=== PATIENT | male | born 1950 | race Caucasian/White ===

== ENCOUNTER 2018-08-14 08:45 | Inpatient (IN) | payer MEDICARE, MEDICAID ==
[~2018-08-14] VITALS: Ht 190.5 cm; Wt 113.6 kg
--- NOTE | 2018-08-14 09:09 | NUR ---
PT TO ROOM 13 IN WHEELCHAIR, REPORT TO Kristen BEJARANO RN
--- NOTE | 2018-08-14 09:30 | NUR ---
PT POOR HISTORIAN. PER PT HE HAS BEEEN OFF ALL MEDICATIONS, INCLUDING LASIX AND BLOOD PRESSURE MEDICATIONS. PT RR 26 AT THIS TIME. SA02 92% ON ROOM AIR. IV INITIATED AND LABS COLLECTED. PT AWARE OF PROBABLE PLAN OF CARE AND WAIT TIME. CALL GREENE WITHIN REACH.
--- NOTE | 2018-08-14 10:00 | NUR ---
3+ PITTING EDEMA NOTED TO BILATERAL LOWER EXTREMITIES. PT AWARE OF PENDING RESULTS AND WAIT TIME. CALL GREENE WITHIN REACH.
[2018-08-14 10:30] LABS: HEMATOCRIT 39.1 % (39.0-50.0); HEMOGLOBIN 12.8 g/dl (14.0-18.0); IMMATURE GRANULOCYTES 0.5 % (0.0-5.0); MEAN CELL VOLUME 89.9 fL CALC (80.0-100.0); MEAN CORPUSCULAR HGB 29.4 pG CALC (26.0-32.0); MEAN CORPUSCULAR HGB CONC 32.7 g/L CALC (32.0-36.0); NEUT# 6.85 thou/uL (1.82-7.42); RED BLOOD COUNT 4.35 mill/uL (4.70-6.10); RED CELL DISTRI WIDTH 15.5 % (11.5-15.5)
[2018-08-14 10:43] LABS: ALBUMIN 4.2 g/dL (3.2-5.0); ALKALINE PHOSPHATASE 89 u/l (38-126); ANION GAP 14 (6-22 (CALC)); BILIRUBIN, TOTAL 1.7 mg/dL (0.0-1.4); BUN 22 mg/dL (8-23); BUN/CREATININE RATIO 19 (12-20 (CALC)); CARBON DIOXIDE 26 mmol/l (22-30); CHLORIDE 108 mmol/l (95-108); CREATININE 1.2 mg/dL (0.7-1.3); GFR 60 ML/MIN (>=60 (CALC)); GFR FOR AFR.AMER. > 60 ML/MIN (>=60 (CALC)); SGOT/AST 20 u/l (19-48); SODIUM 144 mmol/l (137-146); TOTAL PROTEIN 8.1 g/dL (6.3-8.2)
--- NOTE | 2018-08-14 10:47 | NUR ---
PT MEDICATED PER ORDERED. NITRO PATCH APPLIED TO LEFT ANTERIOR CHEST. URINAL PROVIDED AND PT AWARE OF NEED TO USE CALL GREENE IF HE NEEDS TO GET UP TO URINATE.
[2018-08-14 10:48] LABS: INTERNATIONAL NORMALIZED RATIO 1.1 RATIO (0.7-1.3); PROTHROMBIN TIME 11.8 SECONDS (9.0-12.5)
--- NOTE | 2018-08-14 11:15 | NUR ---
PT FOUND STANDING UP BY SIDE OF STRETCHER WITH A SOILED GOWN AND URINE ON THE FLOOR AND CALL LIGHT ON STRETCHER. PT GOWN AND LINENS CHANGED AND PT REMINDED OF NEED TO USE CALL GREENE TO URINATE.
--- NOTE | 2018-08-14 11:36 | NUR ---
NOTIFIED OF CONTINUED HIGH BLOOD PRESSURE. BP 163/109. AWAITING NEW ORDERS.
--- NOTE | 2018-08-14 11:53 | NUR ---
DR FOSTER AT BEDSIDE.
--- NOTE | 2018-08-14 12:40 | NUR ---
PT REPORT CALLED TO YULIA BUSTILLOS.
--- NOTE | 2018-08-14 12:45 | NUR ---
CALL PLACED TO DR FOSTER TO DISCUSS CONTINUED HYPERTENSION. VERBAL ORDER RECEIVED AND FAXED TO PHARMACY.
--- NOTE | 2018-08-14 13:08 | NUR ---
UPDATED REPORT TO YULIA BUSTILLOS.
--- NOTE | 2018-08-14 13:30 | NUR ---
PT HAS TOTAL OUTPUT OF 900 MLS OF PALE YELLOW URINE.
--- NOTE | 2018-08-14 13:46 | NUR ---
Admission Note Report Given to: SBAR PRINTED TO FLOOR Transported by: Wheelchair X Stretcher Transported with: X Nurse Transporter X Patent IV O2 Animal Behaviorist
[2018-08-14 13:52] VITALS: BP 131/92
--- NOTE | 2018-08-14 13:52 | NUR ---
PT ARRIVED TO FLOOR VIA STRETCHER ACCOMPANIED BY ER NURSE. PT AMBULATED WITH UNSTEADY GAIT TO SCALE THEN TO BED. ORIENTED PT TO ROOM AND CALL LIGHT. INFORMED PT THAT DUE TO UNSTEADY GAIT PLEASE NOTIFY STAFF FOR ANY ASSISTANCE, VERBALIZED UNDERSTANDING. PT MEDICATED PER MAR AND INITATED IV ANTIBIOTIC INFUSIONS. ADMISSION ASSESSMENT COMPLETED. PT ALERT AND ORIENTED X3, VOICES NO NEEDS OR COMPLAINTS AT THIS TIME. CALL LIGHT IN REACH,CONTINUE TO MONITOR.
--- NOTE | 2018-08-14 17:35 | NUR ---
DISCUSSED WITH PT NOVOLOG SLIDING SCALE AND DOSAGE. PT STATES HE DOES NOT WANT TO TAKE ANY INSULIN ESPECIALLY WHEN HIS BLOOD SUGAR IS LESS THAN 200. CALL LIGHT IN REACH,CONTINUE TO MONITOR.
[2018-08-14 19:00] VITALS: BP 97/62
--- NOTE | 2018-08-14 20:00 | NUR ---
PT. SITTING UP IN BED; ASSESSMENT COMPLETED; O2 INFUSING PER NC PER ORDER; UPDATED ON POC; VERBALIZES UNDERSTANDING. INSTRUCTED PT. TO CALL FOR ALL OOB NEEDS AND NOT TO GET UP WITHOUT CALLING; FALL RISK BAND APPLIED; EDEMA NOTED TO BLE;TEDS PLACED TO BILATERAL LE. URINAL EMPTIED OF 225ML OF CLEAR YELLOW URINE; PT. REPORTS BM THIS EVENING. CALL LIGHT IS IN REACH. WILL CONTINUE TO MONITOR.
[2018-08-14 20:40] VITALS: BP 120/79
--- NOTE | 2018-08-14 20:40 | NUR ---
RECHECKED B/P 120/79; MEDICATED WITH ORDERED BUMEX; ACCUCHECK 180; DECLINED INSULIN. CALL LIGHT AND URINAL IN REACH.
--- NOTE | 2018-08-14 23:16 | NUR ---
PT. SITTING UP IN BED WITH NO DISTRESS NOTED; DENIES NEEDS/PAIN. URINAL EMPTIED OF 250 MLS OF CLEAR YELLOW URINE; ENCOURAGED TO CALL FOR ANY NEEDS. CALL LIGHT IS IN REACH.
[2018-08-15] VITALS: BP 127/68
--- NOTE | 2018-08-15 01:58 | NUR ---
PT. RESTING IN BED IN SEMI FOWLERS POSITION; DENIES NEEDS; ENCOURAGED TO CALL FOR ANY NEEDS. CALL LIGHT IS IN REACH.
[2018-08-15 04:00] VITALS: BP 131/87
--- NOTE | 2018-08-15 05:51 | NUR ---
PT. RESTING IN BED WITH NO DISTRESS NOTED. DENIES NEEDS. URINAL EMPTIED OF 200 MLS OF URINE; FRESH WATER GIVEN; CALL LIGHT IS IN REACH.
[2018-08-15 06:26] LABS: HEMATOCRIT 36.1 % (39.0-50.0); HEMOGLOBIN 11.7 g/dl (14.0-18.0); IMMATURE GRANULOCYTES 0.3 % (0.0-5.0); MEAN CELL VOLUME 90.7 fL CALC (80.0-100.0); MEAN CORPUSCULAR HGB 29.4 pG CALC (26.0-32.0); MEAN CORPUSCULAR HGB CONC 32.4 g/L CALC (32.0-36.0); NEUT# 7.26 thou/uL (1.82-7.42); RED BLOOD COUNT 3.98 mill/uL (4.70-6.10); RED CELL DISTRI WIDTH 15.3 % (11.5-15.5)
[2018-08-15 06:36] LABS: ALBUMIN 3.6 g/dL (3.2-5.0); ALKALINE PHOSPHATASE 78 u/l (38-126); ANION GAP 12 (6-22 (CALC)); BUN 24 mg/dL (8-23); BUN/CREATININE RATIO 18 (12-20 (CALC)); CARBON DIOXIDE 28 mmol/l (22-30); CHLORIDE 108 mmol/l (95-108); CREATININE 1.3 mg/dL (0.7-1.3); GFR 55 ML/MIN (>=60 (CALC)); GFR FOR AFR.AMER. > 60 ML/MIN (>=60 (CALC)); MAGNESIUM 1.8 mg/dL (1.6-2.3); POTASSIUM 3.6 mmol/l (3.5-5.1); SGOT/AST 13 u/l (19-48); SODIUM 144 mmol/l (137-146); TOTAL PROTEIN 6.8 g/dL (6.3-8.2)
[2018-08-15 07:32] VITALS: BP 137/90
--- NOTE | 2018-08-15 07:32 | NUR ---
PT RESTING IN BED, NO SIGNS OF DISTRESS NOTED, RESP EVEN AND UNLABORED. DISCUSSED POC, PT IN AGREEMENT. ASSESSMENT COMPLETED. PT VOICES NO NEEDS OR COMPLAINTS AT THIS TIME. CALL LIGHT IN REACH,CONTINUE TO MONITOR.
[2018-08-15 11:58] VITALS: BP 127/82
--- NOTE | 2018-08-15 14:22 | NUR ---
SPOKE WITH BROTHER REGAN FROM [place], HE OFFERED INFORMATION REGARDING PT'S STAY AT [facility] DURING MARCH THRU JUN. BROTHER STATES PT HAD FALLEN AND WAS PLACED IN THE FACILITY FOR PHYSICAL THERAPY, ALSO STATES PT HAD A MIRANDA CATHETER DUE TO URINARY RETENTION. ONCE DISCHARGED FROM FACILITY BOTH OF PT'S BROTHERS DECIDED IT WOULD BE BEST FOR PT TO MOVE CLOSER TO THE YOUNGEST BROTHER THAT RESIDES IN [place], [place]. MOTHER AND HAD A DUPLEX THAT PT HAS MOVED INTO BACK IN JUNE. FAMILY EXPRESSED CONCERN FOR PT REGARDING HIS ABILITY TO RESIDE AT HOME ALONE. NOTIFIED CASE MANAGEMENT AND WILL ALSO PASS ON INFORMATION TO FOR PHYSICAL THERAPY CONSULT.
[2018-08-15 15:27] VITALS: BP 124/85
--- NOTE | 2018-08-15 16:51 | NUR ---
PT SITTING UP IN RECLINER PER MD ORDERS. AUTHORIZATION FOR MEDICAL RELEASE SIGNED FOR [facility] AND [facility]. CONTINUE TO MONITOR.
[2018-08-15 19:00] VITALS: BP 112/67
--- NOTE | 2018-08-15 19:18 | NUR ---
PT. SITTING UP IN THE CHAIR; NO DISTRESS NOTED; O2 INFSUING PER NC PER ORDER. ASSESSMENT COMPLETED; DENIES NEEDS/PAIN; INSTRUCTED TO CALL FOR ALL OOB NEEDS; ENCOURAGED TO CALL FOR ANY NEEDS. CALL LIGHT IS IN REACH.
--- NOTE | 2018-08-15 21:00 | NUR ---
SCHED MEDICATIONS GIVEN; PT. DECLINES INSULIN FOR BS OF 181; PO FLUIDS OFFERED. RE-INSTRUCTED PT. TO CALL FOR ALL OOB NEEDS AND NOT TO GET UP WITH CALLING FOR STAFF ASST.; VERBALIZES UNDERSTANDING. CALL LIGHT AND URINAL AT BEDSIDE AND INSTRUCTED TO VOID ONLY IN URINAL FOR ACCURATE OUTPUT. WILL CONTINUE TO MONITOR.
[2018-08-16] VITALS: BP 123/82
--- NOTE | 2018-08-16 00:18 | NUR ---
PT. RESTING IN BED WITH NO DISTRESS NOTED; DENIES NEEDS/PAIN. VOICES NO CONCERNS; URINAL EMPTIED. INSTRUCTED TO CALL FOR ANY NEEDS; CALL LIGHT IS IN REACH; WILL CONTINUE TO MONITOR.
--- NOTE | 2018-08-16 02:13 | NUR ---
PT. RESTING IN BED IN SEMI-FOWLERS POSITION WITH EYES CLOSED; NO DISTRESS NOTED; RESP EVEN AND UNLABORED. CALL LIGHT AND URINAL WITHIN REACH. WILL CONTINUE TO MONITOR.
[2018-08-16 04:30] VITALS: BP 134/89
--- NOTE | 2018-08-16 05:55 | NUR ---
PT. RESTING IN BED WITH EYES CLOSED; NO DISTRESS NOTED; RESP EVEN AND UNLABORED. CALL LIGHT IS IN REACH.
[2018-08-16 06:02] LABS: HEMATOCRIT 36.7 % (39.0-50.0); HEMOGLOBIN 11.6 g/dl (14.0-18.0); MEAN CELL VOLUME 91.8 fL CALC (80.0-100.0); MEAN CORPUSCULAR HGB CONC 31.6 g/L CALC (32.0-36.0); RED CELL DISTRI WIDTH 15.5 % (11.5-15.5)
[2018-08-16 06:07] LABS: ANION GAP 12 (6-22 (CALC)); BUN 24 mg/dL (8-23); BUN/CREATININE RATIO 17 (12-20 (CALC)); CARBON DIOXIDE 30 mmol/l (22-30); CHLORIDE 105 mmol/l (95-108); CREATININE 1.4 mg/dL (0.7-1.3); GFR 50 ML/MIN (>=60 (CALC)); GFR FOR AFR.AMER. > 60 ML/MIN (>=60 (CALC)); POTASSIUM 3.8 mmol/l (3.5-5.1); SODIUM 143 mmol/l (137-146)
--- NOTE | 2018-08-16 07:09 | NUR ---
PT RESTING IN BED, DISCUSSED POC AND TO SIT UP IN CHAIR WITH MEALS, PT IN AGREEMENT. ASSESSMENT COMPLETED AT THIS TIME. EDEMA BLE, TEDS IN PLACE. 02 2L NC, RESP EVEN AND UNLABORED. CALL LIGHT IN REACH,CONTINUE TO MONITOR.
--- NOTE | 2018-08-16 07:40 | NUR ---
PT ASSISTED TO CHAIR AT BEDSIDE FOR BREAKFAST. VSS, MEDICATED PER NOV. URINAL AND CALL LIGHT IN REACH, CONTINUE TO MONITOR.
[2018-08-16 07:49] VITALS: BP 127/85
[2018-08-16 11:30] VITALS: BP 119/54
--- NOTE | 2018-08-16 13:05 | NUR ---
NOTIFIED OF 7 BEAT RUN OF [facility], NO NEW ORDERS GIVEN.
[2018-08-16 15:05] VITALS: BP 112/59
[2018-08-16 19:00] VITALS: BP 128/82
--- NOTE | 2018-08-16 19:30 | NUR ---
PATIENT SITTING IN RECLINER AT THIS TIME WITH O2 VIA NASAL CANNULA IN PLACE. PATIENT IS AWAKE ALERT AND ORIENTEDX3. VOIDING QS YELLOW URINE IN URINAL. TELE MONITORING DEVICE IN PLACE. SALINE LOCK TO RIGHT AC INTACT AND APPEARS HEALTHY AT THIS TIME. SAFETY PRECAUTIONS REINFORCED.CALL LIGHT IN REACH. WILL CONT TO MONITOR.
--- NOTE | 2018-08-16 21:00 | NUR ---
PATIENT SITTING UP ON THE SIDE OF THE BED WITH O2 VIA NASAL CANNULA IN PLACE. COREG HELD-HR-52, BP 128/82. PATIENT WITH NO COMPLAINTS AT THIS TIME. SAFETY PRECAUTIONS REINFORCED. CALL LIGHT IN REACH. WILL CONT TO MONITOR.
--- NOTE | 2018-08-17 | NUR ---
PATIENT RESTING IN BED AT THIS TIME WITH O2 OFF-REAPPLIED WITH ASSISTANCE. PATIENT WITH BP-147/99, HR-67. PATIENT MEDICATED WITH COREG WAS ORDERED AT 2100. VOIDED 200CC OF YELLOW URINE IN URINAL. SAFETY PRECAUTIONS REINFORCED. CALL LIGHT IN REACH. WILL CONT TO MONITOR.
[2018-08-17 00:01] VITALS: BP 147/99
[2018-08-17 04:30] VITALS: BP 102/69
--- NOTE | 2018-08-17 04:47 | NUR ---
PATIENT RESTING IN BED AND FOUND WITH O2 OFF-O2 SAT WAS 84 AND O2 REAPPLIED AT 2LPM. O2 RECHECKED WITH O2 AT 93%. TELE MONITOR IN PLACE. VOIDING QS IN URINAL YELLOW URINE. CALL LIGHT IN REACH. WILL CONT TO MONITOR.
[2018-08-17 05:54] LABS: HEMATOCRIT 34.7 % (39.0-50.0); HEMOGLOBIN 11.2 g/dl (14.0-18.0); MEAN CELL VOLUME 90.4 fL CALC (80.0-100.0); MEAN CORPUSCULAR HGB 29.2 pG CALC (26.0-32.0); MEAN CORPUSCULAR HGB CONC 32.3 g/L CALC (32.0-36.0); RED BLOOD COUNT 3.84 mill/uL (4.70-6.10); RED CELL DISTRI WIDTH 15.4 % (11.5-15.5)
[2018-08-17 06:21] LABS: ANION GAP 14 (6-22 (CALC)); BUN 25 mg/dL (8-23); BUN/CREATININE RATIO 19 (12-20 (CALC)); CARBON DIOXIDE 27 mmol/l (22-30); CHLORIDE 105 mmol/l (95-108); CREATININE 1.3 mg/dL (0.7-1.3); GFR 55 ML/MIN (>=60 (CALC)); GFR FOR AFR.AMER. > 60 ML/MIN (>=60 (CALC)); MAGNESIUM 1.8 mg/dL (1.6-2.3); POTASSIUM 3.7 mmol/l (3.5-5.1); SODIUM 142 mmol/l (137-146)
--- NOTE | 2018-08-17 07:00 | NUR ---
REPORT RECEIVED FROM NIKI JUNIOR;PT OOB RESTING IN RECLINER;INTRODUCED SELF TO PT AND POC DISCUSSED;PT DENIES ANY CURRENT PAIN OR NEEDS;REPSIRATIONS APPEAR EVEN AND UNLABORED ON 02 @ 2L VIA NC;TELE MONITORING IN PLACE;PT ENCOURAGED TO CALL FOR ASSISTANCE IF NEEDED;FALL PRECAUTIONS IN PLACE WITH CALL LIGHT IN REACH;WILL CONTINUE TO MONITOR
--- NOTE | 2018-08-17 08:30 | NUR ---
PT OOB RESTING IN RECLINER;ALERT AND ORIENTED X3;VS OBTAINED AND ASSESSMENT COMPLETED;PT DENIES ANY CURRENT PAIN OR NEEDS,PAIN SCALE AND REPORTING EDUCATED;RESPIRATIONS EVEN AND UNLABORED ON O2 @ 2L VIA NC;ABDOMEN SOFT ON PALPATION AND ACTIVE IN ALL 4 QUADRANTS;WEAK PEDAL PULSES;SKIN INTACT;#22G TO RAC FLUSHED AND PATENT,SITE APPEARS HEALTHY;TELE MONITORING IN PLACE;ACCUCHECK 146, NO COVERAGED NEEDED THIS MORNING;PT DENIES ANY CURRENT NEEDS AND IS INSTRUCTED TO CALL FOR ASSISTANCE IF NEEDED;FALL PRECAUTIONS IN PLACE;CALL LIGHT IN REACH;WILL CONTINUE TO MONITOR
[2018-08-17 08:33] VITALS: BP 121/85
[2018-08-17 11:30] VITALS: BP 116/79
--- NOTE | 2018-08-17 11:40 | NUR ---
PT OOB RESTING IN RECLINER;RESPIRATIONS EVEN AND UNLABORED ON 02 @ 2L VIA NC;PT DENIES ANY CURRENT PAIN OR NEEDS;ACCUCHECK 163, PT REFUSES NOVOLOG ORDER;PT EDUCATED ON INSULIN AND BLOOD GLUCOSE LEVELS;TELE MONITORING IN PLACE;ASSESSMENT REMAINS UNCHANGED AT THIS TIME;ENCOURAGED TO CALL FOR ASSISTANCE IF NEEDED;FALL PRECAUTIONS IN PLACE;WILL CONTINUE TO MONITOR
--- NOTE | 2018-08-17 14:30 | NUR ---
PHYSICAL THERAPY AT BEDSIDE.
--- NOTE | 2018-08-17 14:40 | NUR ---
AT BEDSIDE DISCUSSING POC.
--- NOTE | 2018-08-17 15:30 | NUR ---
PT OOB RESTING IN RECLINER;RESPIRATIONS EVEN AND UNLABORED ON 02 @ 2L VIA NC;PT DENIES ANY CURRENT PAIN OR NEEDS;IV SITE REMAINS PATENT TO RAC;TELE MONITORING IN PLACE;ASSESSMENT UNCHANGED AT THIS TIME;ENCOURAGED TO CALL FOR ASSISTANCE IF NEEDED;FALL PRECAUTIONS IN PLACE WITH CALL LIGHT IN REACH;WILL CONTINUE TO MONITOR
[2018-08-17 15:49] VITALS: BP 108/71
--- NOTE | 2018-08-17 19:27 | NUR ---
PATIENT SITTING UP IN THE RECLINER WITH O2 VIA NASAL CANNULA IN PLACE AND O2 VIA NASAL CANNULA IN PLACE. PATIENT TALKING ON PHONE. TELE MONITOR IN PLACE. IV SITE TO RIGHT AC INTACT AND APPEARS HEALTHY. SAFETY PRECAUTIONS REINFORCED.CALL LIGHT IN REACH. WILL CONT TO MONITOR.
[2018-08-17 20:17] VITALS: BP 122/84
--- NOTE | 2018-08-17 21:02 | NUR ---
PATIENT RESTING IN BED AT THIS TIME AND ECHO BEING DONE AT BEDSIDE. BS-164 AND PATIENT REFUSES TO TAKE NOVALOG FOR ANY RESULT UNDER 200. CALL LIGHT IN REACH. WILL CONT TO MONITOR.
[2018-08-18] VITALS: BP 120/77
--- NOTE | 2018-08-18 00:50 | NUR ---
PATIENT SITTING UP ON THE SIDE OF THE BED-O2 OFF AND REAPPLIED. PATIENT EDUCATED ON NEED TO WEAR THE O2 BECAUSE HE DOES DESAT WHEN O2 IS OFF AND WHEN HE IS SLEEPING. VOIDING QS CLEAR YELLOW URINE IN URINAL. SAFETY PRECAUTIONS REINFORCED. CALL LIGHT IN REACH. WILL CONT TO MONITOR.
--- NOTE | 2018-08-18 04:24 | NUR ---
PATIENT FOUND WITH TELE OFF. O2 OFF AND LINENS ON BED OFF. PATIENT ASSISTED OOB AND LINES CHANGED. O2 REAPPLIED AND TELE MONITOR REAPPLIED. SAFETY PRECAUTIONS REINFORCED.CALL LIGHT IN REACH. WILL CONT TO MONITOR.
[2018-08-18 04:26] VITALS: BP 133/80
[2018-08-18 05:31] LABS: HEMATOCRIT 35.6 % (39.0-50.0); HEMOGLOBIN 11.6 g/dl (14.0-18.0); IMMATURE GRANULOCYTES 0.4 % (0.0-5.0); MEAN CELL VOLUME 89.9 fL CALC (80.0-100.0); MEAN CORPUSCULAR HGB 29.3 pG CALC (26.0-32.0); MEAN CORPUSCULAR HGB CONC 32.6 g/L CALC (32.0-36.0); NEUT# 5.49 thou/uL (1.82-7.42); RED BLOOD COUNT 3.96 mill/uL (4.70-6.10); RED CELL DISTRI WIDTH 15.1 % (11.5-15.5)
[2018-08-18 05:37] LABS: ALBUMIN 3.6 g/dL (3.2-5.0); BILIRUBIN, TOTAL 0.6 mg/dL (0.0-1.4); CREATININE 1.6 mg/dL (0.7-1.3); MAGNESIUM 1.9 mg/dL (1.6-2.3); POTASSIUM 3.8 mmol/l (3.5-5.1); TOTAL PROTEIN 6.7 g/dL (6.3-8.2)
--- NOTE | 2018-08-18 07:05 | NUR ---
REPORT RECEIVED FROM NIKI JUNIOR;PT RESTING AT BEDSIDE;INTRODUCED SELF TO PT AND POC DISCUSSED;RESPIRATIONS EVEN AND UNLABORED ON RA;TELE MONITORING IN PLACE;PT DENIES ANY CURRENT NEEDS AND IS INSTRUCTED TO CALL FOR ASSISTANCE IF NEEDED;FALL PRECAUTIONS IN PLACE WITH BED IN THE LOWEST POSITION AND CALL LIGHT IN REACH;WILL CONTINUE TO MONITOR
--- NOTE | 2018-08-18 07:45 | NUR ---
PT RESTING AT BEDSIDE;VS OBTAINED AND ASSESSMENT COMPLETED;PT DENIES ANY CURRENT PAIN OR NEEDS,PAIN SCALE AND REPORTING EDUCATED;RESPIRATIONS REMAIN EVEN AND UNLABORED ON RA,CLEAR LUNG SOUNDS NOTED;ABDOMEN SOFT ON PALPATION AND ACTIVE IN ALL 4 QUADRANTS;WEAK PEDAL PULSES NOTED;SKIN INTACT;#22G TO RAC FLUSHED AND PATENT,SITE APPEARS HEALTHY;ACCUCHECK 131,NO COVERAGED NEEDED AT THIS TIME;TELE MONITORING IN PLACE;PT ENCOURAGED TO CALL FOR ASSISTANCE IF NEEDED;CALL LIGHT IN REACH;WILL CONTINUE TO MONITOR
[2018-08-18 07:46] VITALS: BP 131/84
[2018-08-18 10:47] VITALS: BP 133/78
--- NOTE | 2018-08-18 10:54 | NUR ---
PT DECLINED PHYSICAL THERAPY. STATING THAT HE WAS WAITING ON HIS MD SO HE COULD BE DISCHARGED TODAY. WILLING TO WORK WITH [facility]
--- NOTE | 2018-08-18 11:12 | NUR ---
AT BEDSIDE DISCUSSING POC INCLUDING DICHARGE PLAN.
--- NOTE | 2018-08-18 11:15 | NUR ---
PT RESTING AT BEDSIDE;RESPIRATIONS EVEN AND UNLABORED ON RA;PT DENIES ANY CURRENT PAIN OR NEEDS;ACCUCHECK 170,PT REFUSES SCHEDULED NOVOLOG.EDUCATED ON IMPORTANCE OF BLOOD GLUCOSE MAINTENANCE;TELE MONITORING IN PLACE;PT DENIES ANY CURRENT NEEDS AND IS INSTRUCTED TO CALL FOR ASSISTANCE IF NEEDED;CALL LIGHT IN REACH;WILL CONTINUE TO MONITOR
--- NOTE | 2018-08-18 11:45 | NUR ---
NOTIFIED OF REPEAT ECHO ORDER PLACED BY AT 0650.PER REPEAT ECHO IS NOT NEEDED. WILL D/C ORDER.
[2018-08-18] MEDS ORDERED: DOXYCYCL HYC100 MG PO (12:24)
[2018-08-18] MEDS ORDERED: BUMETANIDE0.25 MG/ML PO (12:28)
[2018-08-18] MEDS ORDERED: LOSARTAN POT50 MG PO (12:28)
[2018-08-18] MEDS ORDERED: PANTOPRAZOLE SO40 M1 PO (12:28)
[2018-08-18] MEDS ORDERED: IPRATROPIU0.5 MG/3 M IN (12:28)
[2018-08-18] MEDS ORDERED: CARVEDILOL25 MG PO (12:28)
[2018-08-18] MEDS ORDERED: LEVEMIR100 UNIT/M SC (12:28)
--- NOTE | 2018-08-18 13:35 | NUR ---
ALL DISCHARGE INSTRUCTIONS PROVIDED AT THIS TIME;PT ENCOURAGED TO FOLLOW UP WITH AND IKE;PRESCRIPTIONS DISCUSSED INDEPTH;IV SITE REMOVED WITH CATHETER INTACT;PT DENIES ANY CURRENT NEEDS;PT AWAITING [facility] FOR DICHARGE HOME.
--- NOTE | 2018-08-18 14:14 | NUR ---
Discharge instructions given. Patient verbalizes understanding of same. Discharged in stable condition via Wheelchair to Home with *Other. All belongings sent with pt. Pt transported to er via wc accompanied volunteer in stable condition.Pt awaiting the [facility] [facility] which is to arrive at 1430.
== END 2018-08-18 14:12 | disposition home health service (06) | DRG 292 ==
LOC: ED 08:45 → ED-I 11:26 → ED 11:43 → MS2 11:44
PROVIDERS: Emergency Medicine; Internal Medicine; ADMIT Internal Medicine Nephrology; ATTEND Internal Medicine Nephrology
DX: I11.0 Hypertensive heart disease with heart failure (principal); J44.1 Chronic obstructive pulmonary disease with (acute) exacerbation; J44.0 Chronic obstructive pulmonary disease with (acute) lower respiratory infection; I47.2 Ventricular tachycardia; J20.9 Acute bronchitis, unspecified; I16.0 Hypertensive urgency; I50.9 Heart failure, unspecified; E11.9 Type 2 diabetes mellitus without complications; I25.10 Atherosclerotic heart disease of native coronary artery without angina pectoris; D63.8 Anemia in other chronic diseases classified elsewhere; T50.906A Underdosing of unspecified drugs, medicaments and biological substances, initial encounter; Z91.128 Patient's intentional underdosing of medication regimen for other reason; Z86.73 Personal history of transient ischemic attack (TIA), and cerebral infarction without residual deficits
CPT/HCPCS: J1650

== ENCOUNTER 2019-10-30 09:57 | Observation (INO) | payer MEDICARE, MEDICAID ==
[~2019-10-30] VITALS: Ht 190.5 cm; Wt 113.9 kg
[~2019-10-30 09:57] MED LIST: BUMETANIDE0.25 MG/ML PO; CARVEDILOL25 MG PO; DOXYCYCL HYC100 MG PO; IPRATROPIU0.5 MG/3 M IN; LEVEMIR100 UNIT/M SC; LOSARTAN POT50 MG PO; PANTOPRAZOLE SO40 M1 PO
[2019-10-30 10:45] LABS: HEMATOCRIT 39.9 % (39.0-50.0); HEMOGLOBIN 12.3 g/dl (14.0-18.0); IMMATURE GRANULOCYTES 0.5 % (0.0-5.0); MEAN CELL VOLUME 85.3 fL CALC (80.0-100.0); MEAN CORPUSCULAR HGB 26.3 pG CALC (26.0-32.0); MEAN CORPUSCULAR HGB CONC 30.8 g/L CALC (32.0-36.0); NEUT# 10.02 thou/uL (1.82-7.42); RED BLOOD COUNT 4.68 mill/uL (4.70-6.10); RED CELL DISTRI WIDTH 16.6 % (11.5-15.5)
[2019-10-30 11:16] LABS: POTASSIUM 4.7 mmol/l (3.5-5.1)
[2019-10-30 12:57] LABS: URINE BILIRUBIN - DIPSTICK NEGATIVE (NEGATIVE); URINE BLOOD DIPSTICK MODERATE (NEGATIVE); URINE COLOR YELLOW; URINE GLUCOSE - DIPSTICK NEGATIVE (NEGATIVE); URINE KETONE NEGATIVE (NEGATIVE); URINE NITRITE - DIPSTICK NEGATIVE (Negative); URINE PROTEIN - DIPSTICK 30 mg/dL (NEG-TRACE); URINE SPECIFIC GRAVITY 1.025; URINE UROBILINOGEN - DIPSTICK 0.2 E.U./dL (0.2)
[2019-10-30 13:02] LABS: URINE LEUK ESTERASE TRACE (NEGATIVE)
[2019-10-30 13:03] LABS: URINE MUCUS MODERATE hpf (NONE-FEW)
[2019-10-30 15:02] VITALS: BP 129/80
[2019-10-30 16:46] VITALS: BP 133/83
[2019-10-30] MEDS ORDERED: JANUVIA25 MG PO (17:55)
[2019-10-30] MEDS ORDERED: METFORMIN500 M1 PO (17:55)
[2019-10-30] MEDS ORDERED: COZAAR100 MG PO (17:55)
[2019-10-30] MEDS ORDERED: ASPIRIN 81 LOW81 MG PO (17:56)
[2019-10-30] MEDS ORDERED: LEVOTHYROXIN50 MC1 PO (17:56)
[2019-10-30] MEDS ORDERED: NOVOLO1 SC (17:56)
[2019-10-30 19:05] VITALS: BP 158/97
[2019-10-30 23:58] VITALS: BP 134/81
[2019-10-31 03:52] VITALS: BP 158/76
[2019-10-31 08:06] VITALS: BP 144/88
[2019-10-31 12:00] VITALS: BP 111/72
[2019-10-31 13:05] LABS: HEMATOCRIT 38.8 % (39.0-50.0); HEMOGLOBIN 12.1 g/dl (14.0-18.0); MEAN CORPUSCULAR HGB 26.2 pG CALC (26.0-32.0); MEAN CORPUSCULAR HGB CONC 31.2 g/L CALC (32.0-36.0); RED BLOOD COUNT 4.62 mill/uL (4.70-6.10)
[2019-10-31 13:27] LABS: MAGNESIUM 2.2 mg/dL (1.6-2.3)
[2019-10-31 14:24] LABS: CREATININE 1.7 mg/dL (0.7-1.3); POTASSIUM 4.5 mmol/l (3.5-5.1)
[2019-10-31 15:38] VITALS: BP 100/63
[2019-10-31 19:00] VITALS: BP 126/79
[2019-11-01 00:17] VITALS: BP 130/70
[2019-11-01 04:36] VITALS: BP 156/95
[2019-11-01 05:06] LABS: ANION GAP 9 (6-22 (CALC)); BUN 29 mg/dL (8-23); BUN/CREATININE RATIO 21 (12-20 (CALC)); CARBON DIOXIDE 25 mmol/l (22-30); CHLORIDE 109 mmol/l (95-108); CREATININE 1.4 mg/dL (0.7-1.3); GFR 50 ML/MIN (>=60 (CALC)); GFR FOR AFR.AMER. > 60 ML/MIN (>=60 (CALC)); POTASSIUM 4.1 mmol/l (3.5-5.1); SODIUM 139 mmol/l (137-146)
[2019-11-01 09:28] VITALS: BP 113/73
[2019-11-01 10:45] VITALS: BP 120/75
== END 2019-11-01 15:26 | disposition home health service (06) ==
LOC: ED 09:57 → ED-I 13:03 → ED 13:15 → ED-I 13:16 → MS2 13:16
PROVIDERS: Family Medicine; Nurse Practitioner Family; ADMIT Internal Medicine; ATTEND Internal Medicine
PROC: 0HQ0XZZ Repair Scalp Skin, External Approach (ICD-10-PCS; principal; 2019-10-30)
DX: R55 Syncope and collapse (principal); S01.01XA Laceration without foreign body of scalp, initial encounter; N17.9 Acute kidney failure, unspecified; E86.0 Dehydration; E11.9 Type 2 diabetes mellitus without complications; I11.0 Hypertensive heart disease with heart failure; I50.9 Heart failure, unspecified; E78.5 Hyperlipidemia, unspecified; M25.512 Pain in left shoulder; E03.9 Hypothyroidism, unspecified; I25.10 Atherosclerotic heart disease of native coronary artery without angina pectoris; W18.30XA Fall on same level, unspecified, initial encounter; Z86.73 Personal history of transient ischemic attack (TIA), and cerebral infarction without residual deficits; Z95.1 Presence of aortocoronary bypass graft; Z79.4 Long term (current) use of insulin
CPT/HCPCS: G0378

== ENCOUNTER 2019-11-05 10:15 | Inpatient (IN) | payer MEDICARE, MEDICAID ==
[~2019-11-05] VITALS: Ht 190.5 cm; Wt 116.6 kg
[~2019-11-05 10:15] MED LIST changes: +ASPIRIN 81 LOW81 MG PO; +COZAAR100 MG PO; +JANUVIA25 MG PO; +LEVOTHYROXIN50 MC1 PO; +METFORMIN500 M1 PO; +NOVOLO1 SC
[2019-11-05 10:58] LABS: HEMATOCRIT 39.4 % (39.0-50.0); HEMOGLOBIN 12.1 g/dl (14.0-18.0); IMMATURE GRANULOCYTES 0.5 % (0.0-5.0); MEAN CELL VOLUME 85.1 fL CALC (80.0-100.0); MEAN CORPUSCULAR HGB 26.1 pG CALC (26.0-32.0); MEAN CORPUSCULAR HGB CONC 30.7 g/L CALC (32.0-36.0); NEUT# 7.39 thou/uL (1.82-7.42); RED BLOOD COUNT 4.63 mill/uL (4.70-6.10); RED CELL DISTRI WIDTH 17.1 % (11.5-15.5)
[2019-11-05 11:11] LABS: ALBUMIN 3.9 g/dL (3.2-5.0); BILIRUBIN, TOTAL 0.9 mg/dL (0.0-1.4); CREATININE 1.7 mg/dL (0.7-1.3); POTASSIUM 4.8 mmol/l (3.5-5.1); TOTAL PROTEIN 7.6 g/dL (6.3-8.2)
[2019-11-05 14:45] VITALS: BP 162/89
[2019-11-05 15:59] VITALS: BP 162/88
[2019-11-05] MEDS ORDERED: POTASSIUM CHLO10 MEQ PO (16:41)
[2019-11-05] MEDS ORDERED: AMIODARONE200 MG PO (16:42)
[2019-11-05] MEDS ORDERED: ALDACTONE25 MG PO (16:42)
[2019-11-05] MEDS ORDERED: ZOLOFT50 MG PO (16:42)
[2019-11-05] MEDS ORDERED: LASIX 40 MG TAB40 MG PO (16:43)
[2019-11-05] MEDS ORDERED: FAMOTIDINE40 M1 PO (16:44)
[2019-11-05] MEDS ORDERED: ASPIRIN 81 LOW81 MG PO (16:44)
[2019-11-05] MEDS ORDERED: GLUCOPHAGE1000 MG PO (16:47)
[2019-11-05] MEDS ORDERED: JANUVIA100 MG PO (16:48)
[2019-11-05] MEDS ORDERED: BUMETANIDE1 MG PO (16:49)
[2019-11-05] MEDS ORDERED: ISOSORBIDE MONO30 MG PO (16:50)
[2019-11-05] MEDS ORDERED: COREG25 MG PO (16:51)
[2019-11-05] MEDS ORDERED: LEVOTHYROXIN50 MCG PO (16:52)
[2019-11-05] MEDS ORDERED: COZAAR50 MG PO (16:53)
[2019-11-05 18:37] VITALS: BP 138/78
[2019-11-05 23:34] VITALS: BP 129/71
[2019-11-06 03:30] LABS: URINE BILIRUBIN - DIPSTICK NEGATIVE (NEGATIVE); URINE BLOOD DIPSTICK TRACE-INTACT (NEGATIVE); URINE COLOR YELLOW; URINE GLUCOSE - DIPSTICK NEGATIVE (NEGATIVE); URINE KETONE NEGATIVE (NEGATIVE); URINE NITRITE - DIPSTICK NEGATIVE (Negative); URINE PH 5.5 (4.5-8.0); URINE PROTEIN - DIPSTICK TRACE mg/dL (NEG-TRACE); URINE SPECIFIC GRAVITY >=1.030; URINE UROBILINOGEN - DIPSTICK 0.2 E.U./dL (0.2)
[2019-11-06 03:31] LABS: URINE LEUK ESTERASE SMALL (NEGATIVE)
[2019-11-06 03:38] VITALS: BP 154/90
[2019-11-06 03:38] LABS: URINE YEAST FEW hpf
[2019-11-06 07:15] VITALS: BP 121/74
[2019-11-06 10:45] VITALS: BP 97/61
[2019-11-06 16:00] VITALS: BP 135/80
[2019-11-06 18:14] VITALS: BP 134/73
[2019-11-07 00:05] VITALS: BP 171/101
[2019-11-07 03:50] VITALS: BP 130/77
[2019-11-07 04:49] LABS: HEMATOCRIT 38.8 % (39.0-50.0); HEMOGLOBIN 11.8 g/dl (14.0-18.0); MEAN CELL VOLUME 85.3 fL CALC (80.0-100.0); MEAN CORPUSCULAR HGB 25.9 pG CALC (26.0-32.0); MEAN CORPUSCULAR HGB CONC 30.4 g/L CALC (32.0-36.0); RED BLOOD COUNT 4.55 mill/uL (4.70-6.10); RED CELL DISTRI WIDTH 17.1 % (11.5-15.5)
[2019-11-07 05:13] LABS: ALBUMIN 3.3 g/dL (3.2-5.0); ALKALINE PHOSPHATASE 88 u/l (38-126); ANION GAP 9 (6-22 (CALC)); BUN 28 mg/dL (8-23); BUN/CREATININE RATIO 21 (12-20 (CALC)); CARBON DIOXIDE 24 mmol/l (22-30); CHLORIDE 109 mmol/l (95-108); CREATININE 1.4 mg/dL (0.7-1.3); GFR 50 ML/MIN (>=60 (CALC)); GFR FOR AFR.AMER. > 60 ML/MIN (>=60 (CALC)); SGOT/AST 19 u/l (19-48); SODIUM 139 mmol/l (137-146); TOTAL PROTEIN 6.6 g/dL (6.3-8.2)
[2019-11-07 05:15] LABS: BILIRUBIN, TOTAL 0.5 mg/dL (0.0-1.4)
[2019-11-07 08:03] VITALS: BP 131/81
[2019-11-07 11:29] VITALS: BP 160/87
[2019-11-07 15:25] VITALS: BP 151/86
[2019-11-07 18:50] VITALS: BP 133/79
[2019-11-08 00:15] VITALS: BP 163/93
[2019-11-08 04:20] VITALS: BP 167/93
[2019-11-08 08:00] VITALS: BP 151/90
[2019-11-08 11:13] VITALS: BP 127/74
[2019-11-08 14:50] VITALS: BP 121/71
[2019-11-08 19:03] VITALS: BP 140/76
[2019-11-09 00:13] VITALS: BP 143/83
[2019-11-09 04:30] VITALS: BP 158/87
[2019-11-09 05:22] LABS: HEMATOCRIT 37.2 % (39.0-50.0); HEMOGLOBIN 11.6 g/dl (14.0-18.0); MEAN CELL VOLUME 84.4 fL CALC (80.0-100.0); MEAN CORPUSCULAR HGB 26.3 pG CALC (26.0-32.0); MEAN CORPUSCULAR HGB CONC 31.2 g/L CALC (32.0-36.0); RED BLOOD COUNT 4.41 mill/uL (4.70-6.10); RED CELL DISTRI WIDTH 16.8 % (11.5-15.5)
[2019-11-09 05:56] LABS: ANION GAP 11 (6-22 (CALC)); BUN 22 mg/dL (8-23); BUN/CREATININE RATIO 17 (12-20 (CALC)); CARBON DIOXIDE 23 mmol/l (22-30); CHLORIDE 109 mmol/l (95-108); CREATININE 1.2 mg/dL (0.7-1.3); GFR 60 ML/MIN (>=60 (CALC)); GFR FOR AFR.AMER. > 60 ML/MIN (>=60 (CALC)); POTASSIUM 4.1 mmol/l (3.5-5.1); SODIUM 139 mmol/l (137-146)
[2019-11-09 08:00] VITALS: BP 155/88
[2019-11-09 10:35] VITALS: BP 103/65
[2019-11-09 16:15] VITALS: BP 122/73
[2019-11-09 19:51] VITALS: BP 149/83
[2019-11-10 00:10] VITALS: BP 136/83
[2019-11-10 05:01] VITALS: BP 154/9
[2019-11-10 07:36] VITALS: BP 158/89
[2019-11-10 11:09] VITALS: BP 120/71
[2019-11-10 15:10] VITALS: BP 106/63
[2019-11-10] MEDS ORDERED: JANUVIA50 MG PO (15:50)
[2019-11-10] MEDS ORDERED: COZAAR25 MG PO (15:50)
[2019-11-10] MEDS ORDERED: CARVEDILOL3.125 MG PO (15:50)
[2019-11-10] MEDS ORDERED: LIPITOR10 M1 PO (15:50)
== END 2019-11-10 17:52 | DRG 312 ==
LOC: ED 10:15 → ED-I 13:15 → ED 13:26 → MS2 13:27
PROVIDERS: Family Medicine; Nurse Practitioner Family; ADMIT Internal Medicine; ATTEND Internal Medicine
PROC: 0HQ0XZZ Repair Scalp Skin, External Approach (ICD-10-PCS; principal; 2019-11-05)
DX: I95.2 Hypotension due to drugs (principal); N17.9 Acute kidney failure, unspecified; R00.1 Bradycardia, unspecified; T44.7X5A Adverse effect of beta-adrenoreceptor antagonists, initial encounter; S01.01XA Laceration without foreign body of scalp, initial encounter; E11.9 Type 2 diabetes mellitus without complications; I11.0 Hypertensive heart disease with heart failure; I50.9 Heart failure, unspecified; I25.10 Atherosclerotic heart disease of native coronary artery without angina pectoris; E78.5 Hyperlipidemia, unspecified; E03.9 Hypothyroidism, unspecified; E86.0 Dehydration; R62.7 Adult failure to thrive; W01.0XXA Fall on same level from slipping, tripping and stumbling without subsequent striking against object, initial encounter; Z68.32 Body mass index [BMI] 32.0-32.9, adult; Z91.81 History of falling; Z79.4 Long term (current) use of insulin; Z86.73 Personal history of transient ischemic attack (TIA), and cerebral infarction without residual deficits; Z95.1 Presence of aortocoronary bypass graft
CPT/HCPCS: G0378

== ENCOUNTER 2020-09-15 21:37 | Inpatient (IN) | payer MEDICARE, MEDICAID ==
[~2020-09-15] VITALS: Ht 190.5 cm; Wt 124.0 kg
[~2020-09-15 21:37] MED LIST changes: +ALDACTONE25 MG PO; +AMIODARONE200 MG PO; +BUMETANIDE1 MG PO; +CARVEDILOL3.125 MG PO; +COREG25 MG PO; +COZAAR25 MG PO; +COZAAR50 MG PO; +FAMOTIDINE40 M1 PO; +GLUCOPHAGE1000 MG PO; +ISOSORBIDE MONO30 MG PO; +JANUVIA100 MG PO; +JANUVIA50 MG PO; +LASIX 40 MG TAB40 MG PO; +LEVOTHYROXIN50 MCG PO; +LIPITOR10 M1 PO; +POTASSIUM CHLO10 MEQ PO; +ZOLOFT50 MG PO
[2020-09-15 22:22] LABS: HEMATOCRIT 39.7 % (39.0-50.0); HEMOGLOBIN 12.1 g/dl (14.0-18.0); IMMATURE GRANULOCYTES 0.6 % (0.0-5.0); MEAN CELL VOLUME 83.2 fL CALC (80.0-100.0); MEAN CORPUSCULAR HGB 25.4 pG CALC (26.0-32.0); MEAN CORPUSCULAR HGB CONC 30.5 g/dL CAL (32.0-36.0); NEUT# 12.6 thou/uL (1.82-7.42); RED BLOOD COUNT 4.77 mill/uL (4.70-6.10); RED CELL DISTRI WIDTH 16.5 % (11.5-15.5)
[2020-09-15 22:38] LABS: ALBUMIN 3.9 g/dL (3.2-5.0); ALKALINE PHOSPHATASE 93 u/l (38-126); ANION GAP 14 (6-22 (CALC)); BUN 24 mg/dL (8-23); BUN/CREATININE RATIO 21 (12-20 (CALC)); CARBON DIOXIDE 27 mmol/l (22-30); CHLORIDE 101 mmol/l (95-108); CREATININE 1.2 mg/dL (0.7-1.3); GFR 60 ML/MIN (>=60 (CALC)); GFR FOR AFR.AMER. > 60 ML/MIN (>=60 (CALC)); POTASSIUM 3.5 mmol/l (3.5-5.1); SGOT/AST 20 u/l (19-48); SODIUM 137 mmol/l (137-146)
[2020-09-15 22:39] LABS: BILIRUBIN, TOTAL 1.5 mg/dL (0.0-1.4)
[2020-09-15 22:50] LABS: MYOGLOBIN 104 ng/mL (0 - 121)
[2020-09-16 00:57] LABS: URINE BLOOD DIPSTICK SMALL (NEGATIVE); URINE COLOR YELLOW; URINE GLUCOSE - DIPSTICK NEGATIVE (NEGATIVE); URINE KETONE NEGATIVE (NEGATIVE); URINE LEUK ESTERASE TRACE (NEGATIVE); URINE PH 5.5 (4.5-8.0); URINE PROTEIN - DIPSTICK 100 mg/dL (NEG-TRACE); URINE SPECIFIC GRAVITY 1.025
[2020-09-16 01:09] LABS: URINE BILIRUBIN - DIPSTICK SMALL (NEGATIVE); URINE NITRITE - DIPSTICK NEGATIVE (Negative)
[2020-09-16 01:10] LABS: URINE BACTERIA MODERATE hpf; URINE EPITHELIAL CELLS FEW EPI/hpf (0-FEW)
[2020-09-16 01:11] LABS: URINE YEAST MODERATE hpf
[2020-09-16 03:26] VITALS: BP 143/98
[2020-09-16 05:56] LABS: HEMATOCRIT 37.6 % (39.0-50.0); HEMOGLOBIN 11.4 g/dl (14.0-18.0); IMMATURE GRANULOCYTES 0.8 % (0.0-5.0); MEAN CELL VOLUME 83.2 fL CALC (80.0-100.0); MEAN CORPUSCULAR HGB 25.2 pG CALC (26.0-32.0); MEAN CORPUSCULAR HGB CONC 30.3 g/dL CAL (32.0-36.0); NEUT# 11.74 thou/uL (1.82-7.42); RED BLOOD COUNT 4.52 mill/uL (4.70-6.10); RED CELL DISTRI WIDTH 16.2 % (11.5-15.5)
[2020-09-16 06:08] LABS: ANION GAP 13 (6-22 (CALC)); BUN 22 mg/dL (8-23); BUN/CREATININE RATIO 22 (12-20 (CALC)); CARBON DIOXIDE 28 mmol/l (22-30); CHLORIDE 101 mmol/l (95-108); GFR > 60 ML/MIN (>=60 (CALC)); GFR FOR AFR.AMER. > 60 ML/MIN (>=60 (CALC)); POTASSIUM 3.3 mmol/l (3.5-5.1); SODIUM 139 mmol/l (137-146)
[2020-09-16 07:40] VITALS: BP 129/84
[2020-09-16] MEDS ORDERED: CARVEDILOL3.125 MG PO (07:46)
[2020-09-16] MEDS ORDERED: BUMETANIDE1 MG PO (07:46)
[2020-09-16] MEDS ORDERED: JANUVIA100 MG PO (07:47)
[2020-09-16] MEDS ORDERED: LEVOTHYROXIN50 MCG PO (07:47)
[2020-09-16] MEDS ORDERED: LOSARTAN POTASS50 MG PO (07:47)
[2020-09-16 11:19] VITALS: BP 140/96
[2020-09-16 15:03] VITALS: BP 129/76
[2020-09-16 19:30] VITALS: BP 106/78
[2020-09-16 23:30] VITALS: BP 132/74
[2020-09-17 04:00] VITALS: BP 128/82
[2020-09-17 06:14] LABS: HEMATOCRIT 36.8 % (39.0-50.0); MEAN CELL VOLUME 84.4 fL CALC (80.0-100.0); MEAN CORPUSCULAR HGB 25.2 pG CALC (26.0-32.0); MEAN CORPUSCULAR HGB CONC 29.9 g/dL CAL (32.0-36.0); RED BLOOD COUNT 4.36 mill/uL (4.70-6.10); RED CELL DISTRI WIDTH 16.2 % (11.5-15.5)
[2020-09-17 06:45] LABS: ANION GAP 11 (6-22 (CALC)); BUN 24 mg/dL (8-23); BUN/CREATININE RATIO 23 (12-20 (CALC)); CARBON DIOXIDE 29 mmol/l (22-30); CHLORIDE 103 mmol/l (95-108); CREATININE 1.1 mg/dL (0.7-1.3); GFR > 60 ML/MIN (>=60 (CALC)); GFR FOR AFR.AMER. > 60 ML/MIN (>=60 (CALC)); MAGNESIUM 1.7 mg/dL (1.6-2.3); POTASSIUM 3.7 mmol/l (3.5-5.1); SODIUM 139 mmol/l (137-146)
[2020-09-17 08:00] VITALS: BP 110/78
[2020-09-17 11:04] VITALS: BP 136/84
[2020-09-17 15:15] VITALS: BP 126/78
[2020-09-17 20:00] VITALS: BP 135/78
[2020-09-18] VITALS: BP 133/79
[2020-09-18 04:13] VITALS: BP 138/84
[2020-09-18 05:44] LABS: HEMATOCRIT 36.7 % (39.0-50.0); HEMOGLOBIN 10.8 g/dl (14.0-18.0); IMMATURE GRANULOCYTES 0.5 % (0.0-5.0); MEAN CELL VOLUME 85.3 fL CALC (80.0-100.0); MEAN CORPUSCULAR HGB 25.1 pG CALC (26.0-32.0); MEAN CORPUSCULAR HGB CONC 29.4 g/dL CAL (32.0-36.0); NEUT# 8.76 thou/uL (1.82-7.42); RED BLOOD COUNT 4.3 mill/uL (4.70-6.10); RED CELL DISTRI WIDTH 16.3 % (11.5-15.5)
[2020-09-18 06:02] LABS: ALKALINE PHOSPHATASE 76 u/l (38-126); ANION GAP 12 (6-22 (CALC)); BUN 28 mg/dL (8-23); BUN/CREATININE RATIO 27 (12-20 (CALC)); CARBON DIOXIDE 31 mmol/l (22-30); CHLORIDE 100 mmol/l (95-108); CREATININE 1.1 mg/dL (0.7-1.3); GFR > 60 ML/MIN (>=60 (CALC)); GFR FOR AFR.AMER. > 60 ML/MIN (>=60 (CALC)); POTASSIUM 3.8 mmol/l (3.5-5.1); SGOT/AST 17 u/l (19-48); SODIUM 139 mmol/l (137-146)
[2020-09-18 06:03] LABS: TOTAL PROTEIN 6.1 g/dL (6.3-8.2)
[2020-09-18 07:20] VITALS: BP 121/71
[2020-09-18 10:30] VITALS: BP 134/85
[2020-09-18 15:00] VITALS: BP 119/73
[2020-09-18 19:00] VITALS: BP 111/71
[2020-09-19] VITALS: BP 124/79
[2020-09-19 04:00] VITALS: BP 112/68
[2020-09-19 04:18] VITALS: BP 129/84
[2020-09-19 07:52] VITALS: BP 121/75
[2020-09-19 11:00] VITALS: BP 124/79
[2020-09-19 15:00] VITALS: BP 108/68
[2020-09-19] MEDS ORDERED: LEVAQUIN750 M1 PO (15:05)
[2020-09-19] MEDS ORDERED: BUMETANIDE2 MG PO (15:42)
== END 2020-09-19 17:07 | DRG 292 ==
LOC: ED 21:37 → ED-I 23:59 → ED 09-16 01:06 → MS2 09-16 01:07
PROVIDERS: Emergency Medicine; Nurse Practitioner; ADMIT Internal Medicine; ATTEND Internal Medicine
PROC: 0T9B70Z Drainage of Bladder with Drainage Device, Via Natural or Artificial Opening (ICD-10-PCS; principal; 2020-09-16)
DX: I11.0 Hypertensive heart disease with heart failure (principal); N39.0 Urinary tract infection, site not specified; N17.9 Acute kidney failure, unspecified; I50.9 Heart failure, unspecified; E11.9 Type 2 diabetes mellitus without complications; R53.1 Weakness; I25.10 Atherosclerotic heart disease of native coronary artery without angina pectoris; E78.5 Hyperlipidemia, unspecified; E03.9 Hypothyroidism, unspecified; K21.9 Gastro-esophageal reflux disease without esophagitis; Z86.73 Personal history of transient ischemic attack (TIA), and cerebral infarction without residual deficits; R09.02 Hypoxemia; R62.7 Adult failure to thrive; Z68.34 Body mass index [BMI] 34.0-34.9, adult; Z95.1 Presence of aortocoronary bypass graft; Z60.2 Problems related to living alone; Z20.822 Contact with and (suspected) exposure to COVID-19

== ENCOUNTER 2020-12-07 17:05 | Inpatient (IN) | payer MEDICARE, MEDICAID ==
[~2020-12-07] VITALS: Ht 190.5 cm; Wt 107.7 kg
[~2020-12-07 17:05] MED LIST changes: +BUMETANIDE2 MG PO; +LEVAQUIN750 M1 PO; +LOSARTAN POTASS50 MG PO
--- NOTE | 2020-12-07 17:18 | NUR ---
PATIENT ARRIVED ON FLOOR AT THIS TIME. PATIENT WAS INCONTINENT OF STOOL AND URINE AND STATED HE HAS BEEN IN THE SAME DIAPER SINCE EARLY AM. PATIENT UPON REMOVING HIS CLOTHES HAD DRIED STOOL AND HIS SCROTUM WAS EXCORIATED AND HAS SMALL OPEN SKIN. PATIENT WAS CLEANED AT THIS TIME. PATIENT DRESSING ON HEALS REMOVED AT THIS TIME AND PATIENT LEFT HEAL HAS STAGE 2 AND RIGHT HEAL IS UNSTAGEABLE AT THIS TIME. DRESSING CHANGED AND AND WET TO DRY DRESSING APPLIED. PATIENT WAS A DIRECT ADMITT FROM . OFFICE PATIENT STATED HE WAS DISCHARED FROM [facility] A FEW DAYS AGO AND [facility] NEVER SHOWED UP TO HIS HOME AND HE HAS BEEN DOING HIS BEST AND HIS HOME IS A MESS DUE TO DIAPERS THAT ARE SOILED IN THE FLOOR DUE TO HIM NOT BEING ABLE TO CARE FOR SELF. SIDERAILS ARE UP X 2 CALL LIGHT IS WITHIN REACH.
[2020-12-07 17:44] VITALS: BP 136/85
[2020-12-07 18:11] LABS: HEMATOCRIT 38.8 % (39.0-50.0); HEMOGLOBIN 11.9 g/dl (14.0-18.0); IMMATURE GRANULOCYTES 0.6 % (0.0-5.0); MEAN CELL VOLUME 85.8 fL CALC (80.0-100.0); MEAN CORPUSCULAR HGB 26.3 pG CALC (26.0-32.0); MEAN CORPUSCULAR HGB CONC 30.7 g/dL CAL (32.0-36.0); NEUT# 13.89 thou/uL (1.82-7.42); RED BLOOD COUNT 4.52 mill/uL (4.70-6.10); RED CELL DISTRI WIDTH 18.5 % (11.5-15.5)
[2020-12-07 18:30] LABS: POTASSIUM 3.7 mmol/l (3.5-5.1)
[2020-12-07 18:35] LABS: ALBUMIN 4.1 g/dL (3.2-5.0); CREATININE 2.3 mg/dL (0.7-1.3); TOTAL PROTEIN 9.1 g/dL (6.3-8.2)
[2020-12-07 19:00] VITALS: BP 114/70
--- NOTE | 2020-12-07 19:01 | NUR ---
CALLED DR. LIN AT [phone] OATES HAD TOLD HIM ABOUT THIS PT. DR. LIN STATED HE WILL SEE HIM BRIGHT AND EARLY IN THE MORNING.
--- NOTE | 2020-12-07 19:35 | NUR ---
REPORT FROM SAMRA PRINCE. PT NOTED RESTING IN BED. NO APPARENT DISTRESS NOTED. ALERT AND ORIENTED. RESPIRATIONS EVEN AND UNLABORED. PT DENIES ANY PAIN OR DISCOMFORT. DRESSING NOTED TO BILATERAL HEELS, CDI. BUSINESS SYSTEMS ARCHITECT IN PLACE. IV SITE APPEARS HEALTHY. DISCUSSED POC. PT VERBALIZED UNDERSTANDING. CALL LIGHT WITHIN REACH. WILL CONTINUE TO MONITOR.
--- NOTE | 2020-12-07 23:55 | NUR ---
PT RESTING IN BED WITH EYES CLOSED. NO APPARENT DISTRESS NOTED. RESPIRATIONS EVEN AND UNLABORED. IVF INFUSING WITHOUT DIFFICULTY. CALL LIGHT WITHIN REACH. WILL CONTINUE TO MONITOR.
[2020-12-08 00:30] VITALS: BP 106/69
[2020-12-08 04:45] VITALS: BP 127/78
[2020-12-08 05:32] LABS: HEMATOCRIT 36.1 % (39.0-50.0); HEMOGLOBIN 11.1 g/dl (14.0-18.0); MEAN CELL VOLUME 85.1 fL CALC (80.0-100.0); MEAN CORPUSCULAR HGB 26.2 pG CALC (26.0-32.0); MEAN CORPUSCULAR HGB CONC 30.7 g/dL CAL (32.0-36.0); RED BLOOD COUNT 4.24 mill/uL (4.70-6.10); RED CELL DISTRI WIDTH 18.3 % (11.5-15.5)
[2020-12-08 05:45] LABS: CREATININE 1.9 mg/dL (0.7-1.3); MAGNESIUM 2.1 mg/dL (1.6-2.3); POTASSIUM 3.9 mmol/l (3.5-5.1)
--- NOTE | 2020-12-08 07:00 | NUR ---
PT note Patient is screened for rehab intervention and would beneft from PT consult if medical agrees
[2020-12-08 07:20] VITALS: BP 134/74
--- NOTE | 2020-12-08 07:35 | NUR ---
PATIENT RESTING IN BED AT THIS TIME. TEMPERATURE REGULATOR DONE SEE INTERVENTIONS. PATIENT DENIES PAIN AT THIS TIME. WOUND REMAIN UNCHAGED. DR. SILVA IN TO SEE PATIENT AT THIS TIME. SIDERAILS ARE UP CALL LIGHT AND PERSONAL ITEMS WITHIN REACH.
--- NOTE | 2020-12-08 08:10 | NUR ---
DR. ELLER IN TO SEE PT. ASSISTED TO CHANGE BOTH HEEL DRSGS. PT. TOLERATED PROCEDURE WELL.
--- NOTE | 2020-12-08 10:00 | NUR ---
PHYSICAL THEARPY CALLED AT THIS TIME DUE TO PATIENT NEEDING INSTRUCTIONS ON HOW TO USE CRUTCHES. JAIR RN FROM SURGERY MADE THIS CALL.
--- NOTE | 2020-12-08 10:17 | NUR ---
CALLED [employer] SPOKE TO IR[place] WAS GIVEN CONFIRMATION NUMBER [id number].
[2020-12-08 11:24] VITALS: BP 123/70
--- NOTE | 2020-12-08 15:12 | NUR ---
S: CRISELDA ARIAS is a 70 M who presents with right heel ulcer. He has a history of CHF, CAD, T2DM, dyslipidemia, hypothyroidism, CVA, GERD. All medications in patient's chart were reviewed. O: VS: BP 123/70 mmHg, P 68 beats per minute, RR 18 breathes per minute, T 97.43 F W 107.7 kg, HT 75 in, Scr=1.9 mg/dL, CrCl= 54.3 ml/min A: Blood cultures are pending. Urine cultures are pending. P: Patient is on Zosyn 3.375 g IV Q6H. Vancomycin ordered for pharmacy to dose. Start Vancomycin 1500 mg IV Q24H @ 1900. Vancomycin trough is drawn before the 4th dose on 12/10/20 @ 1830. Vancomycin goal trough is between 10-15 mcg/ml. Pharmacy will follow and or advise on antibiotics use as needed.
[2020-12-08 15:53] VITALS: BP 123/70
--- NOTE | 2020-12-08 16:20 | NUR ---
PT IS RELAXING IN BED WITH NO DISTRESS NOTED. IV SITE IS FREE FROM REDNESS OR EDEMA.
[2020-12-08 19:25] VITALS: BP 137/75
--- NOTE | 2020-12-08 20:00 | NUR ---
PHYSICAL ASSESMENT COMPLETE. PT CURRENTLY DENIES PAIN OR DISCOMFORT. SCHEDULED MEDICATIONS AND PRN MEDICATION ADMINISTERED, SEE E-MAR. PT DENIES ANY NEEDS AT THIS TIME. PLAN OF CARE REVIEWED, PT DENIES QUESTIONS, VERBALIZES UNDERSTANDING. ITEMS WITHIN REACH, BED LOCKED IN LOW POSITION W/ BEDRAILS UP X2. CALL GREENE WITHIN REACH, AGREES TO CALL PRN.
[2020-12-09] VITALS (7 sets, daily range): BP systolic 118–144; BP diastolic 64–85
--- NOTE | 2020-12-09 | NUR ---
PT LAYING IN BED WITH EYES CLOSED, APPEARS TO BE SLEEPING, APPEARS COMFORTABLE AND IN NO DISTRESS. RESPIRATIONS REGULAR AND UNLABORED. ITEMS REMAIN WITHIN REACH, CALL GREENE REMAINS WITHIN REACH. BED REMAINS LOCKED AND IN LOW POSITION WITH BEDRAILS UP X2. WILL CONTINUE TO MONITOR.
--- NOTE | 2020-12-09 04:03 | NUR ---
PT RESTING IN BED, NO SIGNS OF DISTRESS NOTED, RESP EVEN AND UNLABORED. PT VOICES NO NEEDS OR COMPLAINTS AT THIS TIME. CALL LIGHT IN REACH, CONTINUE TO MONITOR.
[2020-12-09 06:18] LABS: HEMATOCRIT 36.5 % (39.0-50.0); HEMOGLOBIN 11.3 g/dl (14.0-18.0); IMMATURE GRANULOCYTES 0.6 % (0.0-5.0); MEAN CELL VOLUME 86.3 fL CALC (80.0-100.0); MEAN CORPUSCULAR HGB 26.7 pG CALC (26.0-32.0); NEUT# 7.25 thou/uL (1.82-7.42); RED BLOOD COUNT 4.23 mill/uL (4.70-6.10); RED CELL DISTRI WIDTH 18.2 % (11.5-15.5)
[2020-12-09 06:43] LABS: ALBUMIN 3.4 g/dL (3.2-5.0); BILIRUBIN, TOTAL 0.9 mg/dL (0.0-1.4); CREATININE 1.7 mg/dL (0.7-1.3); POTASSIUM 3.5 mmol/l (3.5-5.1); TOTAL PROTEIN 7.4 g/dL (6.3-8.2)
--- NOTE | 2020-12-09 08:19 | NUR ---
PT SEEN AT REST IN THE BED WITH EYES CLOSED, NO DISTRESS. PILLOWS NOTED UNDER BILATERAL LEGS TO ELEVATE HEELS. BREAKFAST SERVED, PT SEEN FEEDING HIMSELF.
--- NOTE | 2020-12-09 11:53 | NUR ---
PT SEEN BY DR GIL THIS MORNING, PLAN CONTINUES BEFORE. PT ADVISED TO CONTINUE TO FLOAT HEELS TO AVOID FURTHER INJURY TO SKIN.
--- NOTE | 2020-12-09 16:26 | NUR ---
DRESSINGS CHANGED TO BILATERAL HEELS ORDERED. PT REMAINS AT REST IN THE BED, NO COMPLAINTS, NO DISTRESS.
[2020-12-10 04:00] VITALS: BP 137/79
[2020-12-10 06:06] LABS: HEMATOCRIT 35.3 % (39.0-50.0); HEMOGLOBIN 10.6 g/dl (14.0-18.0); MEAN CELL VOLUME 85.9 fL CALC (80.0-100.0); MEAN CORPUSCULAR HGB 25.8 pG CALC (26.0-32.0); RED BLOOD COUNT 4.11 mill/uL (4.70-6.10); RED CELL DISTRI WIDTH 18.2 % (11.5-15.5)
[2020-12-10 06:32] LABS: CREATININE 1.7 mg/dL (0.7-1.3); POTASSIUM 3.5 mmol/l (3.5-5.1)
[2020-12-10 07:54] VITALS: BP 137/82
--- NOTE | 2020-12-10 10:07 | NUR ---
PT AWAKE,ALERT, ORIENTED X3. LUNGS CLEAR, RA. BILATERAL HEELS DRESSED, MARVIN WRAP APPLIED PER BREAKDOWN. PT AWAITS DEBRIDEMENT ON FRIDAY WITH DR LIN.
[2020-12-10 11:15] VITALS: BP 146/75
--- NOTE | 2020-12-10 14:35 | NUR ---
DRESSINGS CHANGED TO BILATERAL FEET. PT IN NO DISTRESS HE RESTS IN THE BED.
[2020-12-10 14:55] VITALS: BP 143/79
--- NOTE | 2020-12-10 18:23 | NUR ---
MEHRDAD HUNG EARLY, TROUGH NOT DRAWN IT WAS INFUSING, RESCHEDULED FOR TOMORROW PRIOR TO ADMINISTRATION. PT RESTS IN THE BED IN NO DISTRESS.
[2020-12-10 19:50] VITALS: BP 137/78
[2020-12-11] VITALS (7 sets, daily range): BP systolic 145–162; BP diastolic 78–93
[2020-12-11 05:39] LABS: HEMATOCRIT 34.4 % (39.0-50.0); HEMOGLOBIN 10.6 g/dl (14.0-18.0); MEAN CELL VOLUME 85.8 fL CALC (80.0-100.0); MEAN CORPUSCULAR HGB 26.4 pG CALC (26.0-32.0); MEAN CORPUSCULAR HGB CONC 30.8 g/dL CAL (32.0-36.0); RED BLOOD COUNT 4.01 mill/uL (4.70-6.10); RED CELL DISTRI WIDTH 18.1 % (11.5-15.5)
[2020-12-11 06:02] LABS: ANION GAP 11 (6-22 (CALC)); BUN 14 mg/dL (8-23); BUN/CREATININE RATIO 11 (12-20 (CALC)); CARBON DIOXIDE 24 mmol/l (22-30); CHLORIDE 108 mmol/l (95-108); CREATININE 1.3 mg/dL (0.7-1.3); GFR 54 ML/MIN (>=60 (CALC)); GFR FOR AFR.AMER. > 60 ML/MIN (>=60 (CALC)); POTASSIUM 3.8 mmol/l (3.5-5.1); SODIUM 139 mmol/l (137-146)
--- NOTE | 2020-12-11 07:30 | NUR ---
PATIENT LAYING IN BED AT THIS TIME. PATIENT DENIES ANY PAIN. ROUTE RETURNER DONE AT THIS TIME. PATIENT HAS BILATERAL HEAL WOUNDS AND BETADINE/DRY DRESSING APPLIED AT THIS TIME. PATIENT IS ON AIR MATTRESS AND CALL LIGHT AND PERSONAL ITEMS ARE WIHTIN REACH. PATIENT REMAINS ON TELE WILL CONTINUE TO MONITOR.
--- NOTE | 2020-12-11 08:10 | NUR ---
DR. ELLER HERE TO SEE PT. DRSG. CHANGE DONE TO RIGHT LEG. PT. TOLERATED PROCEDURE WELL.
--- NOTE | 2020-12-11 10:10 | NUR ---
DRESSING CHANGED AT THIS TIME AND PICTURES TAKEN ON BOTH LEFT AND RIGHT HEALS AT THIS TIME. SEE WOUND CARE INTERVENTION FOR ASSESSEMENT. PATIENT TOLERATED PROCEEDURE WELL AND DENIES ANY PAIN AT THIS TIME. PATIENT REMAINS ON AIR MATTRESS AND CALL LIGHT IS WITHIN REACH.
--- NOTE | 2020-12-11 12:20 | NUR ---
PATIENT LAYING IN BED AT THIS TIME. PATIENT DENIES ANY NEEDS PATIENT IS EATING LUNCH AT THIS TIME. CALL LIGHT IS WITHIN REACH.
--- NOTE | 2020-12-11 13:21 | NUR ---
PT note Pt is NWB at this time due to bilateral heel ulcers. With pt supine in bed performed PROM BLE. Then active DF and PF against manual resistance 3x10 Also active SKTC. Then mod assist was required for pt to achieve sitting position on EOB. He then performed LAQ with 5SH at TKE 2x10. Seated hip abduction and adduction with manual resistance 2x10. After maintaining sitting position for 10minutes pt was made comfortable with call light in reach. Pt would benefit from a stay at extended care facility. Ampac=8
--- NOTE | 2020-12-11 16:04 | NUR ---
PATIENT RESTING IN BED AT THIS TIME. PATIENT DENIES ANY PAIN OR NEEDS AT THIS TIME SIDERAILS ARE UPX 2 CALL LIGHT AND PERSONAL ITEMS WITHIN REACH.
[2020-12-11 20:37] LABS: URINE BILIRUBIN - DIPSTICK NEGATIVE (NEGATIVE); URINE BLOOD DIPSTICK MODERATE (NEGATIVE); URINE COLOR YELLOW; URINE GLUCOSE - DIPSTICK NEGATIVE (NEGATIVE); URINE KETONE NEGATIVE (NEGATIVE); URINE PH 5.5 (4.5-8.0); URINE PROTEIN - DIPSTICK TRACE mg/dL (NEG-TRACE); URINE SPECIFIC GRAVITY >=1.030; URINE UROBILINOGEN - DIPSTICK 0.2 E.U./dL (0.2)
[2020-12-11 20:41] LABS: URINE LEUK ESTERASE SMALL (NEGATIVE); URINE NITRITE - DIPSTICK NEGATIVE (Negative)
[2020-12-11 20:46] LABS: URINE WBC 50-100 WBC/hpf (0-5)
--- NOTE | 2020-12-11 21:00 | NUR ---
PATIENT RESTING IN BED ON AIR MATTRESS. PATIENT IS AWAKE ALERT AND [id number]. PATIENT WITH NO COMPLAINTS AT THIS TIME. ACCU-CHECK IS 101 TONIGHT-NO SLIDING SCALE COVERAGE NEEDED TONIGHT. HS SNACK PROVIDED WITH CRACKERS AND PEANUT BUTTER. TELE MONITOR IN PLACE. IVF NS PATENT AND INFUSING VIA RIGHT AC SITE. SITE IS HEALTHY AT THIS TIME. BOTH HEEL DRESSINGS ARE CDI AT THIS TIME-ELEVATED ON PILLOWS OFF THE MATTRESS. VOIDING QS YELLOW URINE IN URINAL. URINE SPEC OBTAINED AND SENT TO THE LAB. SAFETY PRECAUTIONS REINFORCED. CALL LIGHT IN REACH. WILL CONT TO MONITOR.
[2020-12-12] VITALS: BP 129/77
--- NOTE | 2020-12-12 | NUR ---
PATIENT POSITIONED ON LEFT SIDE AT THIS TIME WITH EYES CLOSED. RESPS ARE EVEN AND UNLABORED. ZOSYN HUNG ORDERED AND INFUSING VIA RAC SITE. TELE MONITOR IN PLACE. BLE DRESSINGS INTACT AND BLE ARE ELEVATED ON PILLOWS. CALL LIGHT IN REACH. WILL CONT TO MONITOR.
[2020-12-12 04:30] VITALS: BP 134/80
--- NOTE | 2020-12-12 05:08 | NUR ---
PATIENT RESTING IN BED WITH BLE ELEVATED ON PILLOWS ON AIR MATTRESS. TELE MONITOR IN PLACE. PATIENT WAS INCONT OF MODERATE AMT OF STOOL EARLIER TONIGHT. PATIENT WAS PROVIDED WITH PERICARE WITH SOAP AND WATER AND LINENS WERE CHANGED. IVF NS PATENT AND INFUSING VIA RAC SITE AT 50CC/HR. SITE REMAINS HEALTHY. CALL LIGHT IN REACH. WILL CONT TO MONITOR.
[2020-12-12 05:51] LABS: ANION GAP 11 (6-22 (CALC)); BUN 13 mg/dL (8-23); BUN/CREATININE RATIO 11 (12-20 (CALC)); CARBON DIOXIDE 26 mmol/l (22-30); CHLORIDE 106 mmol/l (95-108); CREATININE 1.2 mg/dL (0.7-1.3); GFR 60 ML/MIN (>=60 (CALC)); GFR FOR AFR.AMER. > 60 ML/MIN (>=60 (CALC)); POTASSIUM 3.8 mmol/l (3.5-5.1); SODIUM 139 mmol/l (137-146)
[2020-12-12 07:15] VITALS: BP 158/91
--- NOTE | 2020-12-12 07:30 | NUR ---
PATIENT RESTING IN BED AT THIS TIME. PATIENT DENEIS ANY NEEDS AND OR PAIN. RADIO PROGRAM DIRECTOR DONE AT THIS TIME SEE INTERVENTIONS. BILATERAL HEALS ARE UP ON PILLOWS AND DRESSING ARE INTACT. SIDERAILS ARE UP X 2 CALL LIGHT AND PERSONAL ITEMS ARE WITHIN REACH.
--- NOTE | 2020-12-12 09:40 | NUR ---
COVID TEST PREFORMED AT THIS TIME AND SENT TO LAB.
[2020-12-12 10:53] VITALS: BP 143/71
--- NOTE | 2020-12-12 11:46 | NUR ---
PATIENT RESTING IN BED EATING LUNCH AT THIS TIME. PATIENT DENEIS ANY NEEDS AND OR PAIN. CALL LIGHT IS WITHIN REACH AT THIS TIME. SIDERAILS ARE UP X 2.
[2020-12-12] MEDS ORDERED: NYSTOP100000 UNI TOP (12:53)
[2020-12-12] MEDS ORDERED: ROCEPHIN 1 GM1 GM IM (12:53)
[2020-12-12] MEDS ORDERED: ROCEPHIN 1 GM1 GM IV (12:54)
--- NOTE | 2020-12-12 13:24 | NUR ---
PICC LINE PLACED IN RIGHT UPPER ARM AT THIS TIME. PATIENT TOLERATED PROCEEDURE WITHOUT ISSUES AT THIS TIME, PATIENT RETURNED TO ROOM DRESSING CHANGED TO LEFT FOOT AT THIS TIME AND CLEANSED WITH BETADINE AND WET TO DRY DRESSING APPLIED. PATIENT TOLERATED PROCEEDURE WITHOUT PAIN. SIDERAILS ARE UP CALL LIGHT NEAR.
[2020-12-12 14:54] VITALS: BP 149/87
--- NOTE | 2020-12-12 15:49 | NUR ---
PT note Pt supine in bed upon entering. Mod assist required to achieve sitting on EOB. Pt then performed exercises (all with manual resistance provided by therapist) including LAQ 2x10, hamstring curl 2x10, hip abduction 2x10, hip adduction 2x10, ankle DF 2x10, ankle PF 2x10. Pt is still NWB at this time. Ampac=8
--- NOTE | 2020-12-12 15:59 | NUR ---
PATIENT RESTING IN BED AT THIS TIME. PATIENT DENEIS ANY NEEDS AND IS WAITING ON TRANSPORT TO TRANSFER TO [facility] IN [place]. PATIENT EDUCATED REGARDING TRANSFER AND PATIENT VERBALLY UNDERSTANDS AT THIS TIME. SIDERAILS ARE UP X2 CALL LIGHT IS WITHIN REACH.
--- NOTE | 2020-12-12 16:25 | NUR ---
Discharge instructions given. Patient verbalizes understanding of same. Discharged in stable condition via [facility] with *Other. All belongings sent with pt. REPORT CALLED TO [facility] AT [facility] AT THIS TIME.
== END 2020-12-12 16:25 | DRG 593 ==
LOC: MS2 17:05
PROVIDERS: Nurse Practitioner; ADMIT Internal Medicine; ATTEND Internal Medicine
PROC: 02HV33Z Insertion of Infusion Device into Superior Vena Cava, Percutaneous Approach (ICD-10-PCS; principal; 2020-12-12)
PROC: B518ZZA Fluoroscopy of Superior Vena Cava, Guidance (ICD-10-PCS; 2020-12-12)
DX: L89.612 Pressure ulcer of right heel, stage 2 (principal); L03.115 Cellulitis of right lower limb; N17.9 Acute kidney failure, unspecified; I13.0 Hypertensive heart and chronic kidney disease with heart failure and stage 1 through stage 4 chronic kidney disease, or unspecified chronic kidney disease; N39.0 Urinary tract infection, site not specified; I50.9 Heart failure, unspecified; N18.9 Chronic kidney disease, unspecified; E11.22 Type 2 diabetes mellitus with diabetic chronic kidney disease; R62.7 Adult failure to thrive; I25.10 Atherosclerotic heart disease of native coronary artery without angina pectoris; E78.5 Hyperlipidemia, unspecified; E03.9 Hypothyroidism, unspecified; K21.9 Gastro-esophageal reflux disease without esophagitis; B96.4 Proteus (mirabilis) (morganii) as the cause of diseases classified elsewhere; Z86.73 Personal history of transient ischemic attack (TIA), and cerebral infarction without residual deficits; Z95.1 Presence of aortocoronary bypass graft; Z68.32 Body mass index [BMI] 32.0-32.9, adult; Z20.822 Contact with and (suspected) exposure to COVID-19
CPT/HCPCS: J3370

== ENCOUNTER 2021-04-30 11:53 | Observation (INO) | payer MEDICARE, MEDICAID ==
[~2021-04-30] VITALS: Ht 190.5 cm; Wt 128.0 kg
[~2021-04-30 11:53] MED LIST changes: +NYSTOP100000 UNI TOP; +ROCEPHIN 1 GM1 GM IM; +ROCEPHIN 1 GM1 GM IV
--- NOTE | 2021-04-30 12:35 | NUR ---
PATIENT TO ROOM VIA EMS AND PHYSICIAN AT BEDSIDE FOR EVAL
--- NOTE | 2021-04-30 13:49 | NUR ---
PT ADVISED OF WAIT TIME FOR LAB RESULTS. COMFORT MEASURES PROVIDED.
[2021-04-30 14:04] LABS: HEMATOCRIT 39.3 % (39.0-50.0); HEMOGLOBIN 12.4 g/dl (14.0-18.0); IMMATURE GRANULOCYTES 0.1 % (0.0-5.0); MEAN CELL VOLUME 91.6 fL CALC (80.0-100.0); MEAN CORPUSCULAR HGB 28.9 pG CALC (26.0-32.0); MEAN CORPUSCULAR HGB CONC 31.6 g/dL CAL (32.0-36.0); NEUT# 8.04 thou/uL (1.82-7.42); RED BLOOD COUNT 4.29 mill/uL (4.70-6.10); RED CELL DISTRI WIDTH 13.6 % (11.5-15.5)
[2021-04-30 14:09] LABS: ACT PARTIAL THROMBO TIME 26.9 SECONDS (20.0-32.5); ALKALINE PHOSPHATASE 83 u/l (38-126); ANION GAP 14 (6-22 (CALC)); BILIRUBIN, TOTAL 1.2 mg/dL (0.0-1.4); BUN 17 mg/dL (8-23); BUN/CREATININE RATIO 18 (12-20 (CALC)); CARBON DIOXIDE 26 mmol/l (22-30); CHLORIDE 103 mmol/l (95-108); CREATININE 0.9 mg/dL (0.7-1.3); ETHYL ALCOHOL 0 mg/dl (0-30); GFR > 60 ML/MIN (>=60 (CALC)); GFR FOR AFR.AMER. > 60 ML/MIN (>=60 (CALC)); INTERNATIONAL NORMALIZED RATIO 1.2 RATIO (0.7-1.3); LIPASE 57 u/l (23-300); POTASSIUM 3.6 mmol/l (3.5-5.1); PROTHROMBIN TIME 12.4 SECONDS (9.0-12.5); SGOT/AST 17 u/l (19-48); SODIUM 139 mmol/l (137-146); TOTAL PROTEIN 8.1 g/dL (6.3-8.2)
[2021-04-30 16:31] LABS: URINE BILIRUBIN - DIPSTICK NEGATIVE (NEGATIVE); URINE BLOOD DIPSTICK TRACE-INTACT (NEGATIVE); URINE COLOR YELLOW; URINE GLUCOSE - DIPSTICK NEGATIVE (NEGATIVE); URINE KETONE TRACE mg/dL (NEGATIVE); URINE PH 5.5 (4.5-8.0); URINE PROTEIN - DIPSTICK 100 mg/dL (NEG-TRACE); URINE SPECIFIC GRAVITY >=1.030; URINE UROBILINOGEN - DIPSTICK 0.2 E.U./dL (0.2)
[2021-04-30 16:33] LABS: URINE LEUK ESTERASE SMALL (NEGATIVE); URINE NITRITE - DIPSTICK NEGATIVE (Negative)
[2021-04-30 16:45] LABS: URINE RBC 0-2 RBC/hpf (0-5)
--- NOTE | 2021-04-30 16:49 | NUR ---
Received a call from Bart from [facility]. Dolores from [facility] [employer] has been working with the patient to get additional cares in the home. They have also applied for LTC. This will likely get approved tomorrow 05/01/21. He will then have JOSSIE to go to SNF then LTC if needed. If not he will have services avaialbe at home.
[2021-04-30 18:35] VITALS: BP 115/75
--- NOTE | 2021-04-30 18:35 | NUR ---
REPORT PROVIDED TO NIKI COTA. ADVISED OF ALL EVENTS, ATTACHEMENTS, MEDS. PT TO [facility] RM 271 VIA STRETCHER W/ALL BELONGINGS IN STABLE CONDITION. IV SITE HEALTHY IV ABT AND FLUIDS INFUSING.
--- NOTE | 2021-04-30 18:35 | NUR ---
PATIENT ARRIVED VIA STRETCHER ACCOMPANIED BY Misael STORM RN. TRANSFERED TO BED WITH ASSIST OF 3. PATIENT ASSEMENT COMPLETED AT THIS TIME. ALERT AND ORIENTED X 3 CAN BECOME DISORIENTED AT TIMES. CLEAR LUNG SOUNDS 91% ON RA. IRREGULAR HEART SOUNDS. ACTIVE BOWEL SOUNDS IN ALL 4 QUADRANTS. LAST REPORTED BOWEL MOVEMENT TODAY 04/30/21. EDEMA ON BILATERAL LEGS +1. SEVERLY EXCORIATED BORRM, SCROTUM, UNDERARMS AND STOMACH FOLDS. PATIENT STATES HE IS A PATIENT OF [facility].PATIENT HAS A #20G IN THE LAC WITH IVF AT 100ML/HR. DOES NOT CURRENTLY REPORT ANY PAIN, HE STATES HE "JUST WANTS TO SLEEP" PLAN OF CARE REVIEWED AND REORIENTED TO CALL LIGHT, REINFORCED TO CALL IF ASSITANCE IS NEEDED, NON COMPLAIANT WITH CALL LIGHT, BED ALARM IN PLACE.
--- NOTE | 2021-04-30 18:35 | NUR ---
PATIENT ARRIVED VIA STRETCHER ON FLOOR AT THIS TIME, ACCOMPANIED BY Misael STORM RN.
--- NOTE | 2021-04-30 18:54 | NUR ---
REPORT RECEIVED FROM Malou LUCIANO
[2021-05-01 00:47] VITALS: BP 115/75
--- NOTE | 2021-05-01 03:40 | NUR ---
PATIENT REPORTS EATING [facility] AND CALLING THEM TO DELIVER SUBS TO HIM.
[2021-05-01 04:00] VITALS: BP 131/85
--- NOTE | 2021-05-01 05:05 | NUR ---
PATIENT NON COMPLIANT WITH USE OF NASAL CANNULA. 91% ON RA AND 95% ON 2 L NS
--- NOTE | 2021-05-01 05:32 | NUR ---
PATIENT REFUSES TO WEAR NS ON 2L, STATES IF "YOU WEAR IT TOO MUCH YOU BNECOME DEPENDENT ON IT" EXPLAINED TYO PATIENT THAT WAS NOT THE CASE AND HE NEEDED THE SUPPORT NOW. PATIENT DECLINE IT.
[2021-05-01 05:49] LABS: HEMATOCRIT 35.1 % (39.0-50.0); HEMOGLOBIN 11.1 g/dl (14.0-18.0); MEAN CELL VOLUME 91.4 fL CALC (80.0-100.0); MEAN CORPUSCULAR HGB 28.9 pG CALC (26.0-32.0); MEAN CORPUSCULAR HGB CONC 31.6 g/dL CAL (32.0-36.0); RED BLOOD COUNT 3.84 mill/uL (4.70-6.10); RED CELL DISTRI WIDTH 13.5 % (11.5-15.5)
[2021-05-01 06:09] LABS: ANION GAP 10 (6-22 (CALC)); BUN 16 mg/dL (8-23); BUN/CREATININE RATIO 20 (12-20 (CALC)); CARBON DIOXIDE 27 mmol/l (22-30); CHLORIDE 105 mmol/l (95-108); CREATININE 0.8 mg/dL (0.7-1.3); GFR > 60 ML/MIN (>=60 (CALC)); GFR FOR AFR.AMER. > 60 ML/MIN (>=60 (CALC)); MAGNESIUM 1.8 mg/dL (1.6-2.3); POTASSIUM 3.7 mmol/l (3.5-5.1); SODIUM 138 mmol/l (137-146)
[2021-05-01 07:05] VITALS: BP 132/85
--- NOTE | 2021-05-01 07:05 | NUR ---
PATIENT RESTING IN BED AT THIS TIME. MIRROR INSTALLER DONE SEE INTERVENTIONS. O2 ON AT 2L SPO2 IS 94% PATIENT PRESENTS WITH EXCORIATION ON SCROTUM AND BUTTOCK AND LOWER ABDOMINAL CREASES. LUNGS PEREA ARE CLEAR AT THIS TIME. TELE MONITOR ON AND BEING MONITORED BY ED. ACCU CHECK THIS AM RESULTED IN 134 AND NO SLIDING SCALE COVERAGE NEEDED.
--- NOTE | 2021-05-01 10:01 | NUR ---
PATIENT INCONTINENT OF STOOL. PATIENT REMINDED TO USE CALL LIGHT TO ASK FOR ASSISTANCE WHEN NEEDING TO TOILET. PATIENT STATED "WHY" I ONLY CHANGE MY DIAPER AT HOME ONCE A DAY". PATIENT EDUCATED ON THE IMPORTANCE OF KEEPING AREA CLEAR AND CLEAN FROM FECES AND URINE. NYSTATIN POWDER ALSO APPILED AT THIS TIME ON SCROTAL AND JANICE AREA AND LOWER ABDOMENIAL FOLDS. PATIENT TURNED UP ON LEFT SIDE AT THIS TIME.
--- NOTE | 2021-05-01 11:09 | NUR ---
PATIENT RESTING IN BED DENEIS ANY NEEDS AND OR PAIN SIDERAILS ARE UP X 2 CALL LIGHT WITHIN REACH 02 ON AT 2 LITERS AND TELE MONITOR IN PLACE BEING MONITORED BY ED.
[2021-05-01 15:00] VITALS: BP 134/81
[2021-05-01 19:00] VITALS: BP 133/87
[2021-05-02] VITALS: BP 150/91
--- NOTE | 2021-05-02 01:17 | NUR ---
CURRENTLY RESTING RIGHT SIDE LAYING. NO COMPLAINTS. IVF INFUSING ORDERED. BED IN LOW POSITION. CALL LIGHT WITHIN REACH.
[2021-05-02 04:00] VITALS: BP 153/104
--- NOTE | 2021-05-02 04:19 | NUR ---
HYDRALAZINE 10 MG IV GIVEN FOR B/P 153/104 PULSE 74.
--- NOTE | 2021-05-02 05:47 | NUR ---
PATIENT LUNG SOUNDS NISREEN WHEEZING NOTED. IVF DECREASED TO KVO. WILL NOTIFY
[2021-05-02 06:29] LABS: HEMATOCRIT 35.1 % (39.0-50.0); HEMOGLOBIN 11.1 g/dl (14.0-18.0); MEAN CELL VOLUME 92.1 fL CALC (80.0-100.0); MEAN CORPUSCULAR HGB 29.1 pG CALC (26.0-32.0); MEAN CORPUSCULAR HGB CONC 31.6 g/dL CAL (32.0-36.0); RED BLOOD COUNT 3.81 mill/uL (4.70-6.10); RED CELL DISTRI WIDTH 13.8 % (11.5-15.5)
[2021-05-02 06:31] LABS: ANION GAP 12 (6-22 (CALC)); BUN 19 mg/dL (8-23); BUN/CREATININE RATIO 19 (12-20 (CALC)); CARBON DIOXIDE 25 mmol/l (22-30); CHLORIDE 107 mmol/l (95-108); GFR > 60 ML/MIN (>=60 (CALC)); GFR FOR AFR.AMER. > 60 ML/MIN (>=60 (CALC)); MAGNESIUM 1.8 mg/dL (1.6-2.3); POTASSIUM 3.6 mmol/l (3.5-5.1); SODIUM 140 mmol/l (137-146)
--- NOTE | 2021-05-02 07:00 | NUR ---
PT REPORT RECEIVED FROM NIGHT NURSEMIREYA
--- NOTE | 2021-05-02 08:00 | NUR ---
PT WAS FOUND RESTING IN BED IN SEMI-ORTEGA'S POSITION;PT IS A&OX3;VS AND ASSESSMENT WERE COMPLETED;SEE SHIFT ASSESSMENT FOR DETAILS;PT HAS AREAS OF EXCORIATION ON HIS BUTTOCKS, SCROTUM AND BOTH ARMPITS, WELL A HEALING WOUND ON HIS RT HEEL;PICTURES IN CHART;PT HAS SOME EDEMA 2+ IN HIS LEGS AND FEET BILATERALLY;TELE IS IN PLACE;O2@2L VIA NC IN PLACE;RESPIRATATIONS ARE EVEN AND UNLABORED WITH WHEEZING NOTED;SAFETY PRECAUTIONS IN PLACE;CALL LIGHT WITHIN REACH;PT ENCOURAGED TO CALL FOR ANY NEEDS OR CONCERNS;WILL CONTINUE TO MONITOR.
[2021-05-02 08:14] VITALS: BP 153/96
--- NOTE | 2021-05-02 09:49 | NUR ---
PRELIM BLOOD CX SHOWS GRAM POSITIVE COCCI IN 1/. REPORTED TO DANITZA. NO NEW ORDERS RECD. WILL F/U
[2021-05-02 11:59] VITALS: BP 150/101
--- NOTE | 2021-05-02 12:00 | NUR ---
PT WAS FOUND RESTING IN BED EATING LUNCH;TELE IS IN PLACE;O2@2L VIA NC IS IN PLACE;SAFETY PRECAUTIONS IN PLACE;CALL LIGHT WITHIN REACH;WILL CONTINUE TO MONITOR/
[2021-05-02] MEDS ORDERED: OMNICEF300 MG PO (12:42)
[2021-05-02] MEDS ORDERED: ZITHROMAX250 MG PO (12:42)
[2021-05-02] MEDS ORDERED: NYSTOP100000 UNI TOP (13:09)
[2021-05-02 15:13] VITALS: BP 152/97
--- NOTE | 2021-05-02 16:20 | NUR ---
Discharge instructions given. Patient verbalizes understanding of same. Discharged in stable condition via Medical Transport to *Other with *Other. All belongings sent with pt. DISCHARGE PACKET WAS GIVEN TO PT;DISCHARGE INSTRUCTIONS AND MEDICATIONS WERE GIVEN;PT EXPRESSED UNDERSTANDING AND HAD NO FURTHER QUESTIONS;SIGNATURE WAS OBTAINED;TELE WAS REMOVED;IV WAS REMOVED WITHOUT COMPLICATIONS AND CATHETER INTACT;PT WILL BE TRANSPORTED TO REHAB FACILITY WITH MEDICAL TRANSPORT PT WAS TRANSPORTED TO [facility] IN STABLE CONDITION VIA ACCOMPANIED BY MEDICAL TRANSPORT STAFF;ALL PT BELONGINGS WERE SENT WITH PT;PT WILL BE TRANSPORTED TO [facility];REPORT WILL BE CALLED TO FACILITY
--- NOTE | 2021-05-02 19:45 | NUR ---
CALL WAS MADE TO FLORIAN ORNELAS OF [facility] TO GIVE REPORT;MULTIPLE CALLS @[phone] AND 1944 WERE MADE;FINALLY ABLE TO SPEAK TO MIREYA TO GIVE REPORT @1944;SHE THANKED ME AND APOLOGIZED FOR NOT BEING ABLE TO REACH SOMEONE;PT ADMISSION HAD BEEN COMPLETED AND SHE DIDN'T NEED ANY MORE INFO FROM ME AT THIS TIME;
== END 2021-05-02 16:20 ==
LOC: ED 11:53 → ED-I 16:35 → ED 16:56 → MS2 16:57
PROVIDERS: Nurse Practitioner; ADMIT Internal Medicine; ATTEND Internal Medicine
PROC: 0T9B70Z Drainage of Bladder with Drainage Device, Via Natural or Artificial Opening (ICD-10-PCS; principal; 2021-04-30)
DX: J18.9 Pneumonia, unspecified organism (principal); N39.0 Urinary tract infection, site not specified; I11.0 Hypertensive heart disease with heart failure; I50.9 Heart failure, unspecified; E11.9 Type 2 diabetes mellitus without complications; I25.10 Atherosclerotic heart disease of native coronary artery without angina pectoris; E78.5 Hyperlipidemia, unspecified; E03.9 Hypothyroidism, unspecified; K21.9 Gastro-esophageal reflux disease without esophagitis; B96.4 Proteus (mirabilis) (morganii) as the cause of diseases classified elsewhere; B36.9 Superficial mycosis, unspecified; R62.7 Adult failure to thrive; Z68.31 Body mass index [BMI] 31.0-31.9, adult; Z95.1 Presence of aortocoronary bypass graft; Z86.73 Personal history of transient ischemic attack (TIA), and cerebral infarction without residual deficits; Z79.84 Long term (current) use of oral hypoglycemic drugs; Z20.822 Contact with and (suspected) exposure to COVID-19
CPT/HCPCS: G0378

== ENCOUNTER 2021-07-14 16:18 | Inpatient (IN) | payer MEDICARE, MEDICAID ==
[~2021-07-14] VITALS: Ht 190.5 cm; Wt 122.3 kg
[~2021-07-14 16:18] MED LIST changes: +OMNICEF300 MG PO; +ZITHROMAX250 MG PO
[2021-07-14 17:52] LABS: HEMATOCRIT 43.6 % (39.0-50.0); HEMOGLOBIN 12.9 g/dl (14.0-18.0); IMMATURE GRANULOCYTES 0.3 % (0.0-5.0); MEAN CELL VOLUME 90.5 fL CALC (80.0-100.0); MEAN CORPUSCULAR HGB 26.8 pG CALC (26.0-32.0); MEAN CORPUSCULAR HGB CONC 29.6 g/dL CAL (32.0-36.0); NEUT# 5.86 thou/uL (1.82-7.42); RED BLOOD COUNT 4.82 mill/uL (4.70-6.10); RED CELL DISTRI WIDTH 16.9 % (11.5-15.5)
[2021-07-14 18:07] LABS: ALBUMIN 4.2 g/dL (3.2-5.0); ALKALINE PHOSPHATASE 98 u/l (38-126); BILIRUBIN, TOTAL 1.3 mg/dL (0.0-1.4); BUN 18 mg/dL (8-23); BUN/CREATININE RATIO 18 (12-20 (CALC)); CARBON DIOXIDE 28 mmol/l (22-30); CHLORIDE 105 mmol/l (95-108); GFR > 60 ML/MIN (>=60 (CALC)); GFR FOR AFR.AMER. > 60 ML/MIN (>=60 (CALC)); SGOT/AST 20 u/l (19-48); SODIUM 142 mmol/l (137-146); TOTAL PROTEIN 8.2 g/dL (6.3-8.2)
[2021-07-14 18:08] LABS: ANION GAP 13 (6-22 (CALC)); POTASSIUM 4.4 mmol/l (3.5-5.1)
[2021-07-14 22:20] VITALS: BP 163/108
[2021-07-15] VITALS: BP 153/98
[2021-07-15 04:00] VITALS: BP 149/95
[2021-07-15 06:37] LABS: HEMATOCRIT 40.3 % (39.0-50.0); HEMOGLOBIN 12.3 g/dl (14.0-18.0); MEAN CORPUSCULAR HGB 27.2 pG CALC (26.0-32.0); MEAN CORPUSCULAR HGB CONC 30.5 g/dL CAL (32.0-36.0); RED BLOOD COUNT 4.53 mill/uL (4.70-6.10); RED CELL DISTRI WIDTH 16.9 % (11.5-15.5)
[2021-07-15 06:43] LABS: ALBUMIN 4.2 g/dL (3.2-5.0); ALKALINE PHOSPHATASE 95 u/l (38-126); ANION GAP 14 (6-22 (CALC)); BILIRUBIN, TOTAL 1.7 mg/dL (0.0-1.4); BUN 20 mg/dL (8-23); BUN/CREATININE RATIO 17 (12-20 (CALC)); CALCULATED LDLCHOLESTEROL 89 mg/dL (62-129 (CALC)); CARBON DIOXIDE 32 mmol/l (22-30); CHLORIDE 102 mmol/l (95-108); CHOLESTEROL HDL RATIO 5.5 (<4.4 (CALC)); CREATININE 1.1 mg/dL (0.7-1.3); GFR > 60 ML/MIN (>=60 (CALC)); GFR FOR AFR.AMER. > 60 ML/MIN (>=60 (CALC)); HDL CHOLESTEROL 24 mg/dL (>=40); POTASSIUM 4.3 mmol/l (3.5-5.1); SGOT/AST 22 u/l (19-48); SODIUM 143 mmol/l (137-146); TOTAL CHOLESTEROL 132 mg/dl (0-199); TOTAL PROTEIN 8.1 g/dL (6.3-8.2); TOTAL TRIGLYCERIDES 95 mg/dl (30-149); VLDL CHOLESTROL 19 mg/dl (0-38 (CALC))
[2021-07-15 07:15] VITALS: BP 152/94
[2021-07-15 10:45] VITALS: BP 138/97
[2021-07-15 15:53] VITALS: BP 147/98
[2021-07-15 19:00] VITALS: BP 127/87
[2021-07-16 00:06] VITALS: BP 138/87
[2021-07-16 04:13] VITALS: BP 142/87
[2021-07-16 05:18] LABS: HEMATOCRIT 40.6 % (39.0-50.0); HEMOGLOBIN 12.7 g/dl (14.0-18.0); MEAN CELL VOLUME 87.5 fL CALC (80.0-100.0); MEAN CORPUSCULAR HGB 27.4 pG CALC (26.0-32.0); MEAN CORPUSCULAR HGB CONC 31.3 g/dL CAL (32.0-36.0); RED BLOOD COUNT 4.64 mill/uL (4.70-6.10); RED CELL DISTRI WIDTH 16.7 % (11.5-15.5)
[2021-07-16 05:24] LABS: ANION GAP 18 (6-22 (CALC)); BUN 24 mg/dL (8-23); BUN/CREATININE RATIO 21 (12-20 (CALC)); CARBON DIOXIDE 30 mmol/l (22-30); CHLORIDE 99 mmol/l (95-108); CREATININE 1.2 mg/dL (0.7-1.3); GFR 60 ML/MIN (>=60 (CALC)); GFR FOR AFR.AMER. > 60 ML/MIN (>=60 (CALC)); MAGNESIUM 1.8 mg/dL (1.6-2.3); SODIUM 142 mmol/l (137-146)
[2021-07-16 10:35] VITALS: BP 131/78
[2021-07-16 15:25] VITALS: BP 146/73
[2021-07-16 19:00] VITALS: BP 115/69
[2021-07-17] VITALS: BP 110/77
[2021-07-17 04:00] VITALS: BP 125/72
[2021-07-17 05:19] LABS: BUN 31 mg/dL (8-23); BUN/CREATININE RATIO 24 (12-20 (CALC)); CHLORIDE 99 mmol/l (95-108); CREATININE 1.3 mg/dL (0.7-1.3); GFR 54 ML/MIN (>=60 (CALC)); GFR FOR AFR.AMER. > 60 ML/MIN (>=60 (CALC)); MAGNESIUM 1.8 mg/dL (1.6-2.3); SODIUM 142 mmol/l (137-146)
[2021-07-17 05:28] LABS: ANION GAP 10 (6-22 (CALC)); CARBON DIOXIDE 37 mmol/l (22-30); POTASSIUM 3.8 mmol/l (3.5-5.1)
[2021-07-17 07:54] VITALS: BP 142/87
[2021-07-17 09:35] VITALS: BP 142/87
[2021-07-17] MEDS ORDERED: BUMETANIDE1 MG PO (10:26)
[2021-07-17] MEDS ORDERED: LOSARTAN POTASS50 MG PO (10:26)
[2021-07-17] MEDS ORDERED: LEVOTHYROXIN50 MCG PO (10:26)
[2021-07-17] MEDS ORDERED: JANUVIA100 MG PO (10:26)
[2021-07-17] MEDS ORDERED: CARVEDILOL3.125 MG PO (10:26)
[2021-07-17] MEDS ORDERED: ZITHROMAX250 MG PO (10:29)
[2021-07-17] MEDS ORDERED: OMNICEF300 MG PO (10:29)
== END 2021-07-17 15:08 | disposition home health service (06) | DRG 291 ==
LOC: ED 16:18 → ED-I 17:23 → ED 17:23 → ED-I 19:30 → ED 19:34 → MS2 19:35
PROVIDERS: Family Medicine; Nurse Practitioner; ADMIT Internal Medicine; ATTEND Internal Medicine
DX: I13.0 Hypertensive heart and chronic kidney disease with heart failure and stage 1 through stage 4 chronic kidney disease, or unspecified chronic kidney disease (principal); I50.23 Acute on chronic systolic (congestive) heart failure; J18.9 Pneumonia, unspecified organism; N17.9 Acute kidney failure, unspecified; I50.22 Chronic systolic (congestive) heart failure; E11.22 Type 2 diabetes mellitus with diabetic chronic kidney disease; N18.9 Chronic kidney disease, unspecified; I25.10 Atherosclerotic heart disease of native coronary artery without angina pectoris; R09.02 Hypoxemia; E03.9 Hypothyroidism, unspecified; E78.5 Hyperlipidemia, unspecified; K21.9 Gastro-esophageal reflux disease without esophagitis; L98.8 Other specified disorders of the skin and subcutaneous tissue; R53.81 Other malaise; R62.7 Adult failure to thrive; T50.1X6A Underdosing of loop [high-ceiling] diuretics, initial encounter; Z91.128 Patient's intentional underdosing of medication regimen for other reason; Z86.73 Personal history of transient ischemic attack (TIA), and cerebral infarction without residual deficits; Z68.33 Body mass index [BMI] 33.0-33.9, adult; Z95.1 Presence of aortocoronary bypass graft; Z79.84 Long term (current) use of oral hypoglycemic drugs; Z20.822 Contact with and (suspected) exposure to COVID-19; S09.90XA Unspecified injury of head, initial encounter; R53.1 Weakness; S00.83XA Contusion of other part of head, initial encounter; S00.81XA Abrasion of other part of head, initial encounter; E11.9 Type 2 diabetes mellitus without complications; L98.9 Disorder of the skin and subcutaneous tissue, unspecified; T50.996A Underdosing of other drugs, medicaments and biological substances, initial encounter; W01.0XXA Fall on same level from slipping, tripping and stumbling without subsequent striking against object, initial encounter; Y92.009 Unspecified place in unspecified non-institutional (private) residence as the place of occurrence of the external cause; Z59.1 Inadequate housing; Z91.81 History of falling; Z99.81 Dependence on supplemental oxygen
CPT/HCPCS: G0378; J1650

== ENCOUNTER 2021-09-15 10:50 | Observation (INO) | payer MEDICARE, OTHER ==
[~2021-09-15] VITALS: Ht 190.5 cm; Wt 119.0 kg
--- NOTE | 2021-09-15 10:50 | NUR ---
PT TO ROOM 9 VIA EMS. PT C/O BEING UNABLE TO CHANGE HIS BRIEF. PT HAD BM AND NEEDS ASSIST WITH CLEANING HIMSELF UP. PT C/O HIS "BALLS" HURTING BECAUSE HE CANNOT CLEAN HIMSELF. AREA APPEARS EXCORIATED.
--- NOTE | 2021-09-15 11:15 | NUR ---
PT IN SATURATED BRIEF WITH STOOL PRESENT, REMOVED AND PT WASHED AND CLEAN LINENS REPLACED. PT'S JANICE AREA RED/EXCORIATED AND PAINFUL WITH JANICE CARE. PT REPORTS THAT HE ONLY CHANGES ONCE PER DAY, BUT DENIES BEING INCONTINENT OF URINE, BUT IS INCONTINENT OF STOOL. PT REPORTS THAT HE HAS A "POWDER" FOR THE REDNESS BUT DOES NOT USE OFTEN. PT STABLE.
[2021-09-15 13:03] LABS: HEMATOCRIT 43.1 % (39.0-50.0); IMMATURE GRANULOCYTES 0.1 % (0.0-5.0); MEAN CELL VOLUME 89.6 fL CALC (80.0-100.0); MEAN CORPUSCULAR HGB CONC 30.2 g/dL CAL (32.0-36.0); NEUT# 6.06 thou/uL (1.82-7.42); RED BLOOD COUNT 4.81 mill/uL (4.70-6.10); RED CELL DISTRI WIDTH 16.2 % (11.5-15.5)
[2021-09-15 13:13] LABS: ALBUMIN 4.2 g/dL (3.2-5.0); ALKALINE PHOSPHATASE 108 u/l (38-126); ANION GAP 13 (6-22 (CALC)); BUN 20 mg/dL (8-23); BUN/CREATININE RATIO 17 (12-20 (CALC)); CARBON DIOXIDE 27 mmol/l (22-30); CHLORIDE 106 mmol/l (95-108); CREATININE 1.1 mg/dL (0.7-1.3); GFR > 60 ML/MIN (>=60 (CALC)); GFR FOR AFR.AMER. > 60 ML/MIN (>=60 (CALC)); POTASSIUM 4.2 mmol/l (3.5-5.1); SGOT/AST 26 u/l (19-48); SODIUM 141 mmol/l (137-146); TOTAL PROTEIN 8.6 g/dL (6.3-8.2)
[2021-09-15 13:14] LABS: BILIRUBIN, TOTAL 1.3 mg/dL (0.0-1.4)
--- NOTE | 2021-09-15 19:35 | NUR ---
RECEIVED REPORT FROM ED NURSE JOY.
--- NOTE | 2021-09-15 19:54 | NUR ---
REPORT CALLED TO NURSE ON MEDSURG PT TO MEDSURG ON TELE, IV SITE HEALTHY. O2 2L/M VIA NC.
--- NOTE | 2021-09-15 20:05 | NUR ---
PT TAKEN BY STRETCHER TO MED/SURG IN STABLE CONDITION. PAPERWORK AND BELONGINGS HANDED OFF TO NIKI SALES.
--- NOTE | 2021-09-15 20:07 | NUR ---
PATIENT ARRIVED ON UNIT FROM ED VIA STRETCHER AND TRANFERED ON TO BED IN ROOM 277. PATIENT IS A&O X 4, REQUIRES ASSIST WITH ALL ADL's. INCONT OF B/B- BREIF IN PLACE. PT IS O2 DEPEND AT HOME, O2 IN PLACE AT 2L/MIN VIA NC. 20 G PIV IN R-WRIST IS CURRENTLY SALINE LOCKED, CDI & WITH BLOOD RETURN NOTED & FLUSHED WELL WITH 10ML FLUSH. TELE BOX # [id number] & BEING MONITORED BY ED, CURRENTLY READING SR WITH HR IN THE 80'S. ADMISSION COMPLETED. HEAD TO TOE ASSESSMENT DONE, VS OBTAINED, BG IN ER 109, NO COVERAGE NEEDED. PATIENT ORIENTED TO ROOM & CALL LIGHT. PATIENT INSTRUCTED TO CALL FOR ASSISTANCE AND SIGNED FORM # [id number]. BED WHEELS LOCKED, SIDE RAILS UP X 2, CALL LIGHT WITHIN REACH. NO NEEDS EXPRESSED AT THIS TIME, WILL CONTINUE TO MONITOR.
[2021-09-15 23:26] VITALS: BP 157/112
--- NOTE | 2021-09-16 | NUR ---
PATIENT RESTING IN BED WITH EYES CLOSED, NO S/SX OF DISTRESS OR DISCOMFORT NOTED AT THIS TIME. O2 IN PLACE AT 2L/MIN VIA NC, TELE PLACE AND BEING MONITORED BY ED. CALL LIGHT WITHIN REACH, WHEELS LOCKED & SIDERAIL UP X 2, WILL CONTINUE TO MONITOR.
[2021-09-16 00:02] VITALS: BP 152/96
--- NOTE | 2021-09-16 03:00 | NUR ---
DURING ROUNDING PATIENT WAS SOAKED AND SOLID. PATIENT GIVEN A BEDSIDE BATH WITH PCT ASSIST, COMPLETE BED LINEN CHANGED, PATIENT REQUEST TO STAY IN RECLINER, CALL LIGHT WITHIN REACH AND PT INSTRUCTED NOT TO GET UP ON HIS OWN AND PATIENT VERBALIZED UNDERSTANDING. WILL CONTINUE TO MONITOR.
[2021-09-16 03:57] VITALS: BP 148/72
--- NOTE | 2021-09-16 04:40 | NUR ---
LAB AT BEDSIDE TO OBTAIN AM LABS, PATIENT REFUSED TO HAVE LABS THIS AM, STATES "JUST GOT HERE AND ALREADY HAD LABS DONE IN THE ER".
--- NOTE | 2021-09-16 07:00 | NUR ---
RECIEVED REPORT FROM JAMIL RN
[2021-09-16 07:57] VITALS: BP 145/87
--- NOTE | 2021-09-16 07:57 | NUR ---
PT RESTING IN SEMI FOWLERS POSITION. PT IS A/OX3. ASSESSMENT AND VITALS COMPLETED. BP 145/87, HR 71, O2 98% ON ROOM AIR. RESPIRATIONS ARE EVEN AND UNLABORED ON ROOM AIR. LUNG SOUNDS ARE CLEAR. HEART RHYTHM NORMAL WITH TELE IN PLACE, SR PER ER MONITORING. #20G RW FLUSHED, SITE PATENT. REDNESS NOTED TO GROIN. 2+ EDEMA NOTED TO BLE, MORE SO ON RIGHT. REDNESS NOTED TO RLE, ELEVATED ON PILLOWS. PT COMPLAINS OF 5/10 BACK PAIN, PT TO BE MEDICATED WITH TYELNOL. PT DENIES OF ANY ADDITIONAL NEEDS AT THIS TIME. ALL SAFTEY PRECAUTIONS ARE IN PLACE WITH CALL LIGHT IN REACH. WILL CONTINUE TO MONITOR.
--- NOTE | 2021-09-16 09:53 | NUR ---
DR ARMSTRONG AND DEBI STRONG AT BEDSIDE
[2021-09-16 10:08] LABS: URINE BILIRUBIN - DIPSTICK NEGATIVE (NEGATIVE); URINE BLOOD DIPSTICK TRACE-INTACT (NEGATIVE); URINE GLUCOSE - DIPSTICK NEGATIVE (NEGATIVE); URINE KETONE NEGATIVE (NEGATIVE); URINE LEUK ESTERASE TRACE (NEGATIVE); URINE PH 5.5 (4.5-8.0); URINE PROTEIN - DIPSTICK 30 mg/dL (NEG-TRACE); URINE SPECIFIC GRAVITY 1.025; URINE UROBILINOGEN - DIPSTICK 0.2 E.U./dL (0.2)
[2021-09-16 10:21] LABS: URINE COLOR DK. YELLOW; URINE EPITHELIAL CELLS FEW EPI/hpf (0-FEW); URINE NITRITE - DIPSTICK NEGATIVE (Negative); URINE RBC 0-2 RBC/hpf (0-5); URINE WBC 0-2 WBC/hpf (0-5)
[2021-09-16 10:22] LABS: URINE MUCUS FEW hpf (NONE-FEW)
[2021-09-16 11:04] VITALS: BP 129/86
--- NOTE | 2021-09-16 12:14 | NUR ---
PT RESTING IN RECYLINER. REPSIRATIONS ARE EVEN AND UNLABORED ON 2L NC. #20G RW REMAINS IN PLACE. TELE MONITORING IN PLACE. PT DENIES OF ANY PAINS OR DISCOMFORTS AT THIS TIME. ALL SAFTEY PRECAUTIONS ARE IN PLACE WITH CALL LIGHT IN REACH. WILL CONTINUE TO MONITOR.
[2021-09-16 16:04] VITALS: BP 123/72
--- NOTE | 2021-09-16 16:14 | NUR ---
PT SLEEPING IN RECYLINER. RESPIRATIONS ARE EVEN AND UNLABORED ON 2L NC. #20G RW PATENT. TELE MONITORING IN PLACE. NO SIGNS OF ANY PAINS OR DISCOMFORTS AT THIS TIME. ALL SAFETY PRECAUTIONS ARE IN PLACE WITH CALL LIGHT IN REACH
[2021-09-16 19:24] VITALS: BP 122/76
--- NOTE | 2021-09-16 19:51 | NUR ---
RECEIVED REPORT FVROM DAY NURSE PATIENT SITTING IN RECLINER, HOOKED TO O2 VIA NC, NOT IN DISTRESS CVALL LIGHT AT REACH.
--- NOTE | 2021-09-16 20:30 | NUR ---
PATIENT ALERT ORIENTED, ABLE TO MAKE NEEDS KNOWN, CURRENTLY SITTING IN CHAIR, HOOKED TO O2 @ 2LPM VIA NC, BREATHING SHALOOW, UNLABORED, ACTIVE BOWEL SOUNDS, +2 EDEMA NOTED ON BILATERAL LOWER EXTREMITIES, SKIN ON BLE PINKISH AND SCABS NOTED, GROIN, EXCORIATED, NYSTATIN ORDERED, CALL LIGHT AT REACH.
--- NOTE | 2021-09-16 21:00 | NUR ---
PATIENT ASSISTED BACK IN BED, INCONTINENT CARE PROVIDED, CURRENTLY RESTING IN BED, HEAD EEVATED AT 45 DEGREES ANGLE PER COMFORT CALL LIGHT AT REACH.
[2021-09-17] VITALS: BP 146/96
--- NOTE | 2021-09-17 | NUR ---
PATIENT CURRENTLY RESTING WITH EYES CLOSED, CALL LIGHT AT REACH.
[2021-09-17 04:00] VITALS: BP 148/89
--- NOTE | 2021-09-17 04:48 | NUR ---
PATIENT C/O OF SHORTNESS OF BREATH WAS GRIMACING WANTS TO SIT ON CHAIR, SPO2 @ 98-100% ON 2LPM VIA NC, RES ASSISTED TO GET UP USING WALKER, AND ASSISTED TO SIT ON CHAIR, BLE ELEVATED, CALL LIGHT AT REACH.
--- NOTE | 2021-09-17 04:51 | NUR ---
PATIENT REFUSED TO GET BLOOD DRAWN, WILL NOTIFY DAY NURSE AND WILL RETRY LATER THIS MORNING.
[2021-09-17 07:15] VITALS: BP 154/96
--- NOTE | 2021-09-17 07:15 | NUR ---
PATIENT SITTING UP IN CHAIR AT THIS TIME 02 ON AT 2L SPO2 IS 100%. PATIENT DEINES ANY PAIN AND PATIENT DOES EXHIBIT 2+ BILATERAL SWELLING IN LOWER LEGS AND ANKLES. PATIENT HAS CHIVO EXCORIATED SCROTAL AREA NOTED. PATIENT STATES WHEN HE IS HOME HE CHANGES HIS DEPENDS ONCE A DAY. PATIENT GIVEN EDUCATION ON CHANGING DEPENDS MORE OFTEN. ELECTRIC CAR OPERATOR DONE AT THIS TIME SEE INTERVENTONS. TELE MONITOR IN PLACE AND BEING MONITORED BY ED. SIDERAILS ARE UP CALL LIGHT WITHIN REACH.
[2021-09-17 11:17] VITALS: BP 131/86
--- NOTE | 2021-09-17 11:38 | NUR ---
PATIENT LAYING IN BED AT THIS TIME. PATIENT DENIES ANY PAIN OR NEEDS. TELE MONITOR REMAINS IN PLACE SIDERAILS ARE UP CALL LIGHT WITHIN REACH.
[2021-09-17 15:09] VITALS: BP 128/69
--- NOTE | 2021-09-17 15:40 | NUR ---
PATIENT RESTING IN BED AT THIS TIME. PATIENT DENIES ANY PAIN AND OR NEEDS. 02 REMAINS ON AT 2L AND SPO2 IS 94%. SIDERAILS ARE UP CALL LIGHT WITHIN REACH. TELE MONITOR IN PLACE AND BEING MONITORED BY ED. WILL CONTINUE TO MONITOR.
[2021-09-17 16:57] LABS: HEMATOCRIT 38.7 % (39.0-50.0); HEMOGLOBIN 11.7 g/dl (14.0-18.0); MEAN CELL VOLUME 89.8 fL CALC (80.0-100.0); MEAN CORPUSCULAR HGB 27.1 pG CALC (26.0-32.0); MEAN CORPUSCULAR HGB CONC 30.2 g/dL CAL (32.0-36.0); RED BLOOD COUNT 4.31 mill/uL (4.70-6.10); RED CELL DISTRI WIDTH 15.8 % (11.5-15.5)
[2021-09-17 17:08] LABS: ALBUMIN 3.5 g/dL (3.2-5.0); ALKALINE PHOSPHATASE 84 u/l (38-126); ANION GAP 10 (6-22 (CALC)); BILIRUBIN, TOTAL 0.8 mg/dL (0.0-1.4); BUN 27 mg/dL (8-23); BUN/CREATININE RATIO 21 (12-20 (CALC)); CARBON DIOXIDE 32 mmol/l (22-30); CHLORIDE 104 mmol/l (95-108); CREATININE 1.3 mg/dL (0.7-1.3); GFR 54 ML/MIN (>=60 (CALC)); GFR FOR AFR.AMER. > 60 ML/MIN (>=60 (CALC)); MAGNESIUM 1.6 mg/dL (1.6-2.3); POTASSIUM 3.5 mmol/l (3.5-5.1); SGOT/AST 18 u/l (19-48); SODIUM 142 mmol/l (137-146); TOTAL PROTEIN 7.3 g/dL (6.3-8.2)
--- NOTE | 2021-09-17 19:00 | NUR ---
REPORT RECEIVED FROM Randee WESTBROOK RN. CARE OF PT ASSUMED AT THIS TIME.
[2021-09-17 19:30] VITALS: BP 140/85
--- NOTE | 2021-09-18 | NUR ---
PT APPEARS TO BE SLEEPING COMFORTABLY. RESPIRATIONS REGULAR AND UNLABORED. CALL GREENE REMAINS WITHIN REACH.
[2021-09-18 00:23] VITALS: BP 118/72
[2021-09-18 04:20] VITALS: BP 124/83
--- NOTE | 2021-09-18 05:06 | NUR ---
PT SLEEPING IN RECLINER PER HIS PREFERENCE. PT ADVISED HE WOULD NEED TO GET UP TO BE WEIGHED ON STANDING SCALE OR GET BACK IN BED. PT DECLINES, STATES "MAYBE LATER". EDUCATION PROVIDED ON IMPORTANCE OF OBTAINING ACCURATE WEIGHT. PT VERBALIZES UNDERSTANDING. CONTINUES TO DECLINE.
[2021-09-18 06:01] LABS: HEMATOCRIT 41.7 % (39.0-50.0); HEMOGLOBIN 12.3 g/dl (14.0-18.0); MEAN CELL VOLUME 89.9 fL CALC (80.0-100.0); MEAN CORPUSCULAR HGB 26.5 pG CALC (26.0-32.0); MEAN CORPUSCULAR HGB CONC 29.5 g/dL CAL (32.0-36.0); RED BLOOD COUNT 4.64 mill/uL (4.70-6.10)
--- NOTE | 2021-09-18 06:09 | NUR ---
PT DENIES NEEDS AT THIS TIME. CALL GREENE REMAINS WITHIN REACH. AGREES TO CALL PRN. OFFERED TO OBTAIN PT'S WEIGHT. PT CON'T TO DECLINE. WILL ENDORSE TO ONCOMING NURSE.
[2021-09-18 06:11] LABS: ANION GAP 13 (6-22 (CALC)); BUN 30 mg/dL (8-23); BUN/CREATININE RATIO 25 (12-20 (CALC)); CARBON DIOXIDE 31 mmol/l (22-30); CHLORIDE 104 mmol/l (95-108); CREATININE 1.2 mg/dL (0.7-1.3); GFR 60 ML/MIN (>=60 (CALC)); GFR FOR AFR.AMER. > 60 ML/MIN (>=60 (CALC)); SODIUM 144 mmol/l (137-146)
[2021-09-18 07:25] VITALS: BP 122/83
--- NOTE | 2021-09-18 07:25 | NUR ---
PATIENT SITTING UP IN CHAIR AT THIS TIME REFUSING TO BE WEIGHTED AT THIS TIME. IP LITIGATION ASSOCIATE DONE SEE INTERVENTIONS. TELE MONITOR ON AND BEING MONITORED BY ED PATIENT DEINES ANY PAIN AND LUNG PEREA ARE CLEAR. CALL LIGHT IS WITHIN REACH AT THIS TIME. BILATERAL EDEMA NOTED ON ANKLES AND FEET. WILL CONTINUE TO MONITOR.
[2021-09-18 11:00] VITALS: BP 120/76
--- NOTE | 2021-09-18 12:00 | NUR ---
PATIENT SITTING UP IN CHAIR AT THIS TIME. SHY DEINES ANY NEEDS 02 REMAINS ON AT [address]LE MONITOR IN PLACE CALL LIGHT IS WITHIN REACH WILL CONTIUE TO MONITOR.
--- NOTE | 2021-09-18 12:05 | NUR ---
S- Pt stated he was going to go home not rehab. 0- Pt up in recliner. He stated he has lift chair at home and does not sleep in bed. Pt took 4 tries to stand from recliner with max assist x1 and walker in front of him. Initial stand very flexed leaning fore arms on walker. He was able to use walker to turn and sit on bed. He had been incontinent of bowel and bladder. Pt moved supine using bed rail and mod assist, rolling with bed rail and mod assist side to sit. Pt moved up in bed with bed rails and max effort slightly. He was cleaned and brief replaced. Mod/max to move supine to sit. Sit from stand with high elevated bed and mod assist to return to chair. LE exercises performed in sitting, BP 112/72 to 120/76, HR 72 to 65 and 02 sat 95%. Time spent with wt 45 min. 0- AMPA 8 ECF. P- will follow per POC.
[2021-09-18 14:40] VITALS: BP 132/83
--- NOTE | 2021-09-18 15:37 | NUR ---
PATIENT SITTING UP IN CHAIR AT THIS TIME WITH LEGS ELEVATED. PATEINT REFUSING TO GO BACK TO BED AT THIS TIME. PATINET DENIES ANY PAIN OR NEEDS. CALL LIGHT WITHIN REACH TELE MONITOR IN PLACE AND BEING MONITORED BY ED. WILL CONTINUE TO MONITOR.
[2021-09-18 19:30] VITALS: BP 149/93
--- NOTE | 2021-09-18 22:00 | NUR ---
PATIENT RESTING IN BED AT THIS TIME WITH O2 VIA NASAL CANNULA IN PLACE. O2 SATS ARE AT 93%. TELE MONITOR IN PLACE. SALINE LOCK TO RIGHT WRIST INTACT. HS MEDS PROVIDED. USING NYSTATIN POWDER TO RED PERINEAL AREA AFTER CHANGING. SAFETY PRECAUTIONS REINFORCED. BED ALARM IN PLACE FOR PATIENT SAFETY. CALL LIGHT IN REACH. WILL CONT TO MONITOR.
[2021-09-19 00:35] VITALS: BP 110/54
--- NOTE | 2021-09-19 02:00 | NUR ---
PATIENT INSISTS ON GETTING OOB TO THE RECLINER-MAX ASSIST OOB TO THE RECLINER-FEET ELEVATED. BLE ARE RED AND SCALEY WITH SCABBED AREAS TO SOME OF THE TOES. PULSES ARE WEAK. O2 REAPPLIED, TELE MONITOR IN PLACE. CALL LIGHT IN REACH. WILL CONT TO MONITOR.
[2021-09-19 04:00] VITALS: BP 145/90
[2021-09-19 06:47] LABS: HEMATOCRIT 36.4 % (39.0-50.0); HEMOGLOBIN 11.5 g/dl (14.0-18.0); MEAN CELL VOLUME 87.3 fL CALC (80.0-100.0); MEAN CORPUSCULAR HGB 27.6 pG CALC (26.0-32.0); MEAN CORPUSCULAR HGB CONC 31.6 g/dL CAL (32.0-36.0); RED BLOOD COUNT 4.17 mill/uL (4.70-6.10); RED CELL DISTRI WIDTH 15.9 % (11.5-15.5)
[2021-09-19 07:11] LABS: ANION GAP 11 (6-22 (CALC)); BUN 26 mg/dL (8-23); BUN/CREATININE RATIO 22 (12-20 (CALC)); CARBON DIOXIDE 32 mmol/l (22-30); CHLORIDE 103 mmol/l (95-108); CREATININE 1.2 mg/dL (0.7-1.3); GFR 60 ML/MIN (>=60 (CALC)); GFR FOR AFR.AMER. > 60 ML/MIN (>=60 (CALC)); MAGNESIUM 1.7 mg/dL (1.6-2.3); POTASSIUM 3.6 mmol/l (3.5-5.1); SODIUM 142 mmol/l (137-146)
--- NOTE | 2021-09-19 07:30 | NUR ---
RECIEVED REPORT FROM NIKI JUNIOR
[2021-09-19 08:01] VITALS: BP 127/79
--- NOTE | 2021-09-19 08:01 | NUR ---
PT SLEEPING IN SEMI FOWLERS POSITION. AWAKENS TO SPEECH. PT IS A/OX3. ASSESSMENT AND VITALS COMPLETED. BP 127/79, HR 60, O2 99% ON 2L NC. PT HOME DEPENDENT ON 2L.RESPIRATIONS ARE EVEN AND UNLABORED WITH NO DISTRESS. LUNG SOUNDS ARE DIMINISHED IN LOWER LOBES. HEART RHYTHM NORMAL WITH TELE IN PLACE. BOWEL SOUNDS ARE ACTIVE, LBM 09/18/20.#20G RW FLUSHED, SITE APPEARS HEALTHY AND PATENT. PEDAL PULSES WEAK. REDNESS NOTED TO BLE, MORE SO ON RLE. 1+ EDEMA NOTED. ELEVATED WITH PILLOW X2. PT DENIES OF ANY PAINS OR DISCOMFORTS AT THIS TIME.ACCUCHECK RESULTING IN 108, NO COVERAGE NEEDED. ALL SAFTEY PRECAUTIONS ARE IN PLACE WITH CALL LIGHT IN REACH. WILL CONTINUE TO MONITOR.
--- NOTE | 2021-09-19 10:02 | NUR ---
DR SEO AND DAKSHA,ANRP AT BEDSIDE
[2021-09-19 10:42] VITALS: BP 132/84
--- NOTE | 2021-09-19 11:35 | NUR ---
PT SLEEPING IN REYCLINER. RESPIRATIONS ARE EVEN AND UNLABORED WITH NO DISTRESS ON 2L NC. TELE MONITORING IN PLACE. #20G RW REMAINS. NO SIGNS OF ANY PAINS OR DISCOMFORTS. ALL SAFETY PRECAUTIONS ARE IN PLACE WITH CALL LIGHT IN REACH. WILL CONTINUE TO MONITOR.
--- NOTE | 2021-09-19 12:07 | NUR ---
S- Pt initially c/o SOB when entering room, pt instructed to talke deep breath, he coughed and then denied SOB 0- Pt in bed with head elevated RR 24 and then decreased to 18. Pt agreed to participate in therapy. Pt performed LE ex in bed including heelslide, hip abd/add, hip IR/ER, SAQ 2x 10 reps. Heel cord and HS stretch done by therapist x 3 reps. Rolling side to side with use of bed rail and min/mod assist. Pt moved supine to sitting over edge of bed with mod/max assist of upper body. Pt stood x 2 from elevated bed with mod assist and walker in front of him and on second stand transferred to chair with CGA/min assist x 2. Pt left in recliner with call rg and tray in reach. BP 132/85 to 126/79, 02 sats 94%, HR 63-69. Time spen with pt 40 min 0- AMPAC 9 ECF P- will follow.
--- NOTE | 2021-09-19 13:56 | NUR ---
[facility] RESPRESENTATIVE AT BEDSIDE
[2021-09-19 15:55] VITALS: BP 136/83
--- NOTE | 2021-09-19 16:40 | NUR ---
PT SLEEPING IN CHAIR. RESPIRATIONS ARE EVEN AND UNLABORED WITH NO DISTRESS NOTED ON 2L NC. PT AWAKENS TO SPEECH. TELE MONITORING IN PLACE. #20G RW REMAINS IN PLACE. PT DENIES OF ANY PAINS OR DISCOMFORTS AT THIS TIME. ALL SAFTEY PRECAUTIONS ARE IN PLACE WITH CALL LIGHT IN REACH. WILL CONTINUE TO MONITOR.
[2021-09-19 19:00] VITALS: BP 141/89
--- NOTE | 2021-09-19 20:00 | NUR ---
PATIENT SITTING UP IN RECLINER AT THIS TIME WITH O2 VIA NASAL CANNULA IN PLACE. O2 SAT AT TH IS TIME IS 100%. SOME SOB NOTED WITH EXHERSION. TELE MONITOR IN PLACE WITH LAST READING BEING SR-61 WITH 1ST DEGREE AVB. IV SITE TO RIGHT WRIST INTACT. ENCOURAGED PATIENT TO KEEP FEET ELEVATED WHEN UP IN RECLINER. SAFETY PRECAUTIONS REINFORCED. CALL LIGHT IN REACH. WILL CONT TO MONITOR.
[2021-09-20] VITALS: BP 128/73
--- NOTE | 2021-09-20 01:00 | NUR ---
PATIENT RESMAINS UP IN RECLINER PER PATIENT REQUEST. O2 VIA NASAL CANNULA IN PLACE. FEET ELEVATED WHILE IN RECLINER. TELE MOITOR IN PLACE. EYES ARE CLOSED AND RESPS ARE EVEN AND UNLABORED. APPEARS SLEEPING. CALL LIGHT IN REACH. WILL CONT TO MONITOR.
[2021-09-20 04:00] VITALS: BP 135/78
--- NOTE | 2021-09-20 04:40 | NUR ---
PATIENT REMAINS UP IN THE RECLINER WITH O2 VIA NASAL CANNULA IN PLACE. NEW IV SITE STARTED TO LEFT FOREARM-#22 GAUGE WITH GOOD BLOOD RETURN. SITE TO RIGHT WRIST WAS D/C'ED WITH CATH INTACT-SITE IS OUTDATED TODAY. TELE MONITOR IN PLACE. SAFETY PRECAUTIONS REINFORCED. CALL LIGHT IN REACH. WILL CONT TO MONITOR.
[2021-09-20 06:22] LABS: HEMATOCRIT 40.4 % (39.0-50.0); HEMOGLOBIN 12.4 g/dl (14.0-18.0); MEAN CELL VOLUME 90.4 fL CALC (80.0-100.0); MEAN CORPUSCULAR HGB 27.7 pG CALC (26.0-32.0); MEAN CORPUSCULAR HGB CONC 30.7 g/dL CAL (32.0-36.0); RED BLOOD COUNT 4.47 mill/uL (4.70-6.10); RED CELL DISTRI WIDTH 16.2 % (11.5-15.5)
[2021-09-20 06:42] LABS: ANION GAP 12 (6-22 (CALC)); BUN 31 mg/dL (8-23); BUN/CREATININE RATIO 25 (12-20 (CALC)); CARBON DIOXIDE 33 mmol/l (22-30); CHLORIDE 102 mmol/l (95-108); CREATININE 1.2 mg/dL (0.7-1.3); GFR 60 ML/MIN (>=60 (CALC)); GFR FOR AFR.AMER. > 60 ML/MIN (>=60 (CALC)); MAGNESIUM 1.8 mg/dL (1.6-2.3); POTASSIUM 3.7 mmol/l (3.5-5.1); SODIUM 143 mmol/l (137-146)
--- NOTE | 2021-09-20 07:30 | NUR ---
RECIEVED REPORT FROM NIKI JUNIOR
--- NOTE | 2021-09-20 07:30 | NUR ---
RECIEVED REPORT FROM NIKI JUNIOR
[2021-09-20 07:52] VITALS: BP 125/79
--- NOTE | 2021-09-20 07:52 | NUR ---
PT RESTING IN RECYLINER. PT IS A/OX3. ASSESSMENT AND VITALS COMPLETED. BP 125/79, HR 53, O2 97% ON 2L NC. RESPIRATIONS ARE EVEN AND UNLABORED ON 2L, PT HOME DEPENDENT. LUNG SOUNDS ARE CLEAR. HEART RHYTHM NORMAL WITH TELE IN PLACE, SB PER ER MONITORING. BOWEL SOUNDS ACTIVE, LBM 09/18/20. PEDAL PULSES WEAK. #22G LFA FLUSHED, SITE APPEARS HEALTHY AND PATENT. REDNESS NOTED TO BLE, MORE SO THE RIGHT. 2+ EDEMA NOTED TO BLE. PT DENIES OF ANY PAINS OR DISCOMFORTS AT THIS TIME. ALL SAFTEY PRECAUTIONS ARE IN PLACE WITH CALL LIGHT IN REACH. WILL CONTINUE TO MONITOR.
--- NOTE | 2021-09-20 09:12 | NUR ---
DR SEO AND DAKSHA,ANRP AT BEDSIDE
--- NOTE | 2021-09-20 09:15 | NUR ---
Patient is being seen by PT but would benefit from OT as well
[2021-09-20 11:46] VITALS: BP 125/77
--- NOTE | 2021-09-20 11:51 | NUR ---
S- Pt reported he was going to rehab soon. 0- Pt sitting recliner, without complaints voiced. He performed sitting LE ex and supine AROM ex 2 x10 reps each. Pt stood with mod assist x 2 and noted to have wet brief. Pt ambulated with RW and min/mod assist x 1 8' to bed. Sit to supine with assist with LE and supine to sit with mod assist for upper body and pt using bed rails. Rolling side to side with min assist. Pt cleaned and new brief applied. He was able to stand from raise bed with min assist x 2 and walked back to chair with RW x 8' and min/mod assist x 1. Pt BP 126/72 to 131/65, HR 60-63 and 02 sats 95-93%. Time spent with pt 45 min. A- Pt was able to ambulate today for first time. [facility] 11 ECF P- Will follow per POC.
--- NOTE | 2021-09-20 12:00 | NUR ---
PT SCREENED FOR OT ASSESSMENT AND INTERVENTION. HE WOULD BENEFIT FROM SKILLED OT INTERVENTION BUT WILL BE D/C TO REHAB FACILITY LATER TODAY.
--- NOTE | 2021-09-20 12:37 | NUR ---
PT RESTING IN REYCLINER WATCHING TV. RESPIRATIONS ARE EVEN AND UNLABORED ON 2L NC. #22G REMAINS IN PLACE. TISSUES PROVIDED. PT DENIES OF ANY ADDITIONAL NEEDS. ALL SAFETY PRECAUTIONS ARE IN PLACE WITH CALL LIGHT IN REACH. WILL CONTINUE TO MONITOR.
[2021-09-20 14:00] VITALS: BP 122/63
--- NOTE | 2021-09-20 18:32 | NUR ---
I.S ADMINISTERED. PT EDUCATED IN USAGE. PT DEMONSTRATED, 1999 REACHED
[2021-09-20 19:06] VITALS: BP 125/78
--- NOTE | 2021-09-20 19:10 | NUR ---
REPORT RECEIVED FROM Radhames CHILDRESS LPN.
--- NOTE | 2021-09-20 19:50 | NUR ---
ASSEMENT COMPLETED AT THIS TIME
[2021-09-21 00:22] VITALS: BP 117/77
--- NOTE | 2021-09-21 01:00 | NUR ---
LARGE INCONTINENT EPISODE, PT CHANGED, NYSTATING POWDER APPLIED.
[2021-09-21 02:48] VITALS: BP 139/83
--- NOTE | 2021-09-21 04:45 | NUR ---
LAB IN TO DRAW PT LABS AT THIS TIME. PT TOLERATED WELL.
[2021-09-21 05:26] LABS: HEMATOCRIT 38.5 % (39.0-50.0); HEMOGLOBIN 11.7 g/dl (14.0-18.0); MEAN CELL VOLUME 90.2 fL CALC (80.0-100.0); MEAN CORPUSCULAR HGB 27.4 pG CALC (26.0-32.0); MEAN CORPUSCULAR HGB CONC 30.4 g/dL CAL (32.0-36.0); RED BLOOD COUNT 4.27 mill/uL (4.70-6.10)
[2021-09-21 05:32] LABS: ANION GAP 11 (6-22 (CALC)); BUN 31 mg/dL (8-23); BUN/CREATININE RATIO 28 (12-20 (CALC)); CARBON DIOXIDE 34 mmol/l (22-30); CHLORIDE 102 mmol/l (95-108); CREATININE 1.1 mg/dL (0.7-1.3); GFR > 60 ML/MIN (>=60 (CALC)); GFR FOR AFR.AMER. > 60 ML/MIN (>=60 (CALC)); MAGNESIUM 1.8 mg/dL (1.6-2.3); POTASSIUM 3.6 mmol/l (3.5-5.1); SODIUM 143 mmol/l (137-146)
--- NOTE | 2021-09-21 07:00 | NUR ---
RECIEVED REPORT FROM NIKI SHUKLA
[2021-09-21 07:33] VITALS: BP 127/76
--- NOTE | 2021-09-21 07:33 | NUR ---
PT SITTIG UP IN RECYLINER. PT IS A/OX3. ASSESSMENT AND VITALS COMPLETED. BP 127/76, HR 57, O2 97% ON 2L NC. RESPIRATIONS ARE EVEN AND UNLABORED. LUNG SOUNDS ARE CLEAR. HEART RHYTHM NORMAL WITH TELE IN PLACE. BOWEL SOUNDS ARE ACTIVE. #22G LFA FLUSHED, SITE PATENT. REDNESS AND 2+ EDEMA NOTED TO BLE, ENCOURAGED ELEVATION. REDNESS NOTED TO SCROTUM, NITSTATIN APPLIED. PT DENIES OF ANY PAINS OR DISCOMFORTS AT THIS TIME. ALL SAFTEY PRECUTIONS ARE IN PLACE WITH CALL LIGHT IN REACH. WILL CONTINUE TO MONITOR.
--- NOTE | 2021-09-21 09:44 | NUR ---
DR SEO AND DAKSHA,ANRP AT BEDSIDE
--- NOTE | 2021-09-21 10:41 | NUR ---
S- no complaints voiced, stated he was going to Rehab today. 0- Pt sitting in recliner. Sit to stand from recliner with mod/max assist x 1, from elevated bed mod assist. Pt moved sit to supine with mod/max assist of LE, supine to sit with max assist of upper body. Pt rolled side to side with mod assist and bed rail. Brief was satuated and had brown stool, pt cleaned and new brief placed. Pt ambulated 2 x 8' with RW and min/mod assist x 1. LE exercises performed in sitting with gentle heelcord stretch and calf stretch done by therapist. Pt was left in recliner with with legs elevated, call rg and tray in reach, [employer] PATR[employer] OFFICER aware. 02 sats 96%, BP 118/71, HR 56 A- Pt continues to require much assist with mobility. [facility] unchanged ECF P- will follow per POC.
[2021-09-21] MEDS ORDERED: BUMETANIDE1 MG PO (11:17)
[2021-09-21 11:33] VITALS: BP 118/71
--- NOTE | 2021-09-21 12:52 | NUR ---
PT EDUCATED ON DC INSTRUCTIONS AND NEW MEDCATIONS. PT VERBALIZED UNDERSTANDING. P/U TIME TO [facility] SCHEDULED AT 1400. TELE MONITORING REMIAINS IN PLACE. IV PATENT. PT DENIES OF ANY NEEDS. ALL SAFTEY PRECAUTIONS ARE IN PLACE WITH CALL LIGHT IN REACH. WILL CONTINUE TO MONITOR.
--- NOTE | 2021-09-21 13:38 | NUR ---
#20G RAC REMOVED WITH CATH STILL INTACT.
--- NOTE | 2021-09-21 13:38 | NUR ---
#22G LW REMOVED WITH CATH STILL INTACT. TELE REMOVED, ER INFORMED.
--- NOTE | 2021-09-21 13:41 | NUR ---
Discharge instructions given. Patient verbalizes understanding of same. Discharged in stable condition via Wheelchair to Home with staff. All belongings sent with pt. PT DC HOME IN STABLE CONDITION VIA WHEELCHAIR WITH ALL DC INSTRUCTIONS AND PERSONAL BELONGINGS
--- NOTE | 2021-09-21 14:14 | NUR ---
Discharge instructions given. Patient verbalizes understanding of same. Discharged in stable condition via Wheelchair to Home with staff. All belongings sent with pt. PT DC TP DHR IN STABLE CONDITION VIA WHEELCHAIR WITH ALL DC INSTRUCTIONS AND PERSONAL BELONGINGS
--- NOTE | 2021-09-21 14:28 | NUR ---
REPORT GIVEN TO NIKI RICO
== END 2021-09-21 11:41 ==
LOC: ED 10:50 → ED-I 15:10 → ED 15:19 → MS2 15:20
PROVIDERS: Family Medicine; Nurse Practitioner; Nurse Practitioner Family; ADMIT Hospitalist; ATTEND Hospitalist
DX: J18.9 Pneumonia, unspecified organism (principal); I13.0 Hypertensive heart and chronic kidney disease with heart failure and stage 1 through stage 4 chronic kidney disease, or unspecified chronic kidney disease; I50.23 Acute on chronic systolic (congestive) heart failure; N17.9 Acute kidney failure, unspecified; E11.22 Type 2 diabetes mellitus with diabetic chronic kidney disease; N18.9 Chronic kidney disease, unspecified; R62.7 Adult failure to thrive; I25.10 Atherosclerotic heart disease of native coronary artery without angina pectoris; E03.9 Hypothyroidism, unspecified; E78.5 Hyperlipidemia, unspecified; K21.9 Gastro-esophageal reflux disease without esophagitis; B35.6 Tinea cruris; R32 Unspecified urinary incontinence; Z86.73 Personal history of transient ischemic attack (TIA), and cerebral infarction without residual deficits; Z95.1 Presence of aortocoronary bypass graft; Z60.2 Problems related to living alone; Z68.33 Body mass index [BMI] 33.0-33.9, adult; Z99.81 Dependence on supplemental oxygen; Z79.84 Long term (current) use of oral hypoglycemic drugs; Z20.822 Contact with and (suspected) exposure to COVID-19; M79.89 Other specified soft tissue disorders
CPT/HCPCS: G0378; J1650

== ENCOUNTER 2022-03-26 17:17 | Inpatient (IN) | payer MEDICARE, OTHER ==
[2022-03-26] VITALS (18 sets, daily range): BP systolic 108–159; BP diastolic 56–96
[~2022-03-26] VITALS: Ht 190.5 cm; Wt 111.0 kg
--- NOTE | 2022-03-26 17:17 | NUR ---
PT TO ROOM VIA EMS STRETCHER; PT SOILED WITH FECES; SHOE TO LEFT FOOT AND SOCKS SATURATED WITH FECES TO BILATERAL FEET; COTHING REMOVED WITH MAGGOTS TO RIGHT HEEL; PT BATHED WITH ASSIST X4;
--- NOTE | 2022-03-26 17:30 | NUR ---
PATIENT ALERT AND PLEASANT. PATIENT IN ROOM LYING IN STRECHER. PATIENT ARRIVED TO RESPIRATIONS EVEN AND UNLABORED. COMPLAINS OF BACK PAIN 3/10. SKIN THROUGHOUT UPPER BODY. DRY, SCALY, AND FLAKING PATIENT CLOTHING SOILED FROM HEAD TO TOE. PATIENT'S CLOTHING SOAKED WITH URINE AND STOOL. PATIENT EXTREMLY UNKEPT. HE STATED THAT HE HAS NO HELP AT HOME. PATIENT RIGHT LOWER EXTERMITY RED, WEAPING, AND HOT TO TOUCH. TOES ARE MOIST AND COOL TO TOUCH. SKIN MACERATED AND PEELING OFF OF FOOT. APPROXIMATELY TENNIS BALL SIZED WOUND NOTED TO BOTTOM OR RIGHT FOOT, MAGGOTS NOTED STUCK TO FOOT AND IN TOES. PATIENT CLEANSED FROM HEAD TO TOE. CHANGED CLOTHING AND PLACED IN GOWN. ,
[2022-03-26 18:15] LABS: HEMATOCRIT 41.7 % (39.0-50.0); HEMOGLOBIN 13.4 g/dl (14.0-18.0); IMMATURE GRANULOCYTES 0.2 % (0.0-5.0); MEAN CELL VOLUME 85.5 fL CALC (80.0-100.0); MEAN CORPUSCULAR HGB 27.5 pG CALC (26.0-32.0); MEAN CORPUSCULAR HGB CONC 32.1 g/dL CAL (32.0-36.0); NEUT# 10.76 thou/uL (1.82-7.42); RED BLOOD COUNT 4.88 mill/uL (4.70-6.10); RED CELL DISTRI WIDTH 14.5 % (11.5-15.5)
[2022-03-26 18:30] LABS: ALBUMIN 4.3 g/dL (3.2-5.0); ALKALINE PHOSPHATASE 123 u/l (38-126); ANION GAP 14 (6-22 (CALC)); BILIRUBIN, TOTAL 0.7 mg/dL (0.0-1.4); BUN 38 mg/dL (8-23); BUN/CREATININE RATIO 29 (12-20 (CALC)); CARBON DIOXIDE 28 mmol/l (22-30); CHLORIDE 100 mmol/l (95-108); CREATININE 1.3 mg/dL (0.7-1.3); GFR FOR AFR.AMER. > 60 ML/MIN (>=60 (CALC)); GFR OTHER RACES 54 ML/MIN (>=60 (CALC)); POTASSIUM 4.2 mmol/l (3.5-5.1); SGOT/AST 28 u/l (19-48); SODIUM 138 mmol/l (137-146); TOTAL PROTEIN 9.1 g/dL (6.3-8.2)
--- NOTE | 2022-03-26 18:35 | NUR ---
Reassessment of patient completed. No distress noted.
--- NOTE | 2022-03-26 19:35 | NUR ---
PATIENT LYING IN BED RESTING QUIETLY. TURNED AND POSITIONED FOR COMFORT. NO ACUTE DISTRESS NOTED. WILL CONTINUE WILL PLAN OF CARE. CALL LIGHT IN REACH.
--- NOTE | 2022-03-26 20:35 | NUR ---
Reassessment of patient completed. No distress noted.
--- NOTE | 2022-03-26 21:30 | NUR ---
PATIENT TO BE ADMITTED TO MED SURG FLOOR. PATIENT AWARE AND AGREEABLE WITH PLAN CARE. CALL LIGHT IN REACH. NO ACUTE DISTRESS NOTED. WILL CONTINUE.
--- NOTE | 2022-03-26 22:45 | NUR ---
PATIENT ARRIVED VIA STRETCHER. PATIENT TRANSFERED TO BED WITH 3 PERSON ASSIST. AOX3. NO DISTRESS NOTED. PATIENT HAS RIGHT LOWER EXTREMITY CELLULITIS AND RIGHT HEEL WOUND. BLOODY PURULENT DRAINAGE PRESENT WITH FOUL ODOR. SENSATION IN R LEG DRECREASED. PATIENT UNABLE TO LIFT R EXTREMITY. WOUND PICTURES TAKEN AND WOUND REMAINS OPEN TO AIR. PT FEELS PAIN ONLY WHEN R LEG IS LIFTED. PATIENT EDUCATED TO REMAIN ON BEDREST. EDUCATED ON FALL PRECAUTION AND CALL GREENE USE. ADMISSON ASSESSEMENT. POC REVIEWED. PATIENT HAS NO FURTHER QUESTIONS AT THIS TIME.
[2022-03-27] VITALS (7 sets, daily range): BP systolic 104–141; BP diastolic 49–80
--- NOTE | 2022-03-27 04:38 | NUR ---
PATIENT RESTING IN BED. REPOSITIONED PATIENT. NO DISTRESS NOTED. FALL PRECAUTIONS IN PLACE. CALL GREENE WITHIN REACH.
[2022-03-27] MEDS ORDERED: BUMETANIDE1 MG PO (11:50)
[2022-03-27] MEDS ORDERED: WELLBUTRIN XL150 MG PO (11:52)
--- NOTE | 2022-03-27 12:15 | NUR ---
PT RESTING IN SEMI FOWLERS POSITION. ASSESSMENT AND VS COMPLETED. HEART RHYTHM NORMAL RESPIRATIONS EVEN AND UNLABORED BOWEL SOUNDS ACTIVE IV SITE NOTED. PT CULTURE TO RIGHT LEGX2 TOOKEN PER PROVIDERS ORDERS. PT DENIES ADDITIONAL NEEDS AT THE TIME ALL SAFETY PRECAUTIONS IN PLACE WITH CALL LIGHT IN REACH.
--- NOTE | 2022-03-27 12:47 | NUR ---
PT RESTING IN HIGH FOWLERS POSITION. PT DENIES ADDITIONAL NEEDS ALL SAFTEY PRECAUTIONS IN PLACE.
--- NOTE | 2022-03-27 19:15 | NUR ---
Report received for dayshift nurse via sbar format, found patient stable. Call rg at reach, no pain reported, will follow up closely.
--- NOTE | 2022-03-27 20:00 | NUR ---
Found patient resting in bed, alert and oriented x3, disoriented to time, no pain reported at this time, appears comfortable, cellulities noted to the right leg open to air, left leg has some redness as well, diminish pedal pulses to BLE. Will follow up with medication schedule, call rg at reach, safety measures reinforced, supplies needed at bedside.
--- NOTE | 2022-03-27 21:23 | NUR ---
PATIENT IS RESTING IN BED, C/O PAIN IN LOWER BACK, WILL MEDICATE PER EMAR.
--- NOTE | 2022-03-27 21:35 | NUR ---
MEDICATED WITH TYLENOL FOR LOWER BACK PAIN, WILL REASSESS IN AN HOUR, CALL GREENE AT REACH, REINFORCED SAFETY MEASURES.
--- NOTE | 2022-03-27 22:39 | NUR ---
Patient states "pain is better." no s/s of distress noted, will follow up closely, call rg at reach, safety measures reinforced.
--- NOTE | 2022-03-27 23:54 | NUR ---
Found patient resting in bed with eyes closed, resp are even and unlabored on room air, no pain or needs reported at this time, abx infusing to patent iv site, will follow up closely, call rg at reach, safety measures reinforced.
[2022-03-28] VITALS (7 sets, daily range): BP systolic 103–140; BP diastolic 54–77
--- NOTE | 2022-03-28 02:01 | NUR ---
Patient c/o lower back pain and right leg pain due to cellulitis, tylenol administered at 2132 is q6h, no time for another dose, informed Dr. Mendez of patient c/o pain and requesting pain medication. Waiting for new orders.
--- NOTE | 2022-03-28 02:59 | NUR ---
Patient is moaning too loud, c/o back pain and right leg pain, repositioned for comfort, no new orders from Dr. Mendez yet. Medicated with tylenol per EMAR. Will reassess in an hour. call rg at reach.
--- NOTE | 2022-03-28 03:54 | NUR ---
Patient is resting in bed with eyes closed, arouses easily to stimuli, states pain is better, repositioned for comfort with pillows supporting BLE. Call rg at reach, safety measures reinforced.
--- NOTE | 2022-03-28 05:10 | NUR ---
Patient is resting in bed with eyes closed, easily arouses to stimuli, no needs reported at this time, will continue to monitor closely, call rg at reach. Safety measures reinforced.
--- NOTE | 2022-03-28 06:13 | NUR ---
Patient suddenly woke up, yelling out c/o pain to lower back and right leg, repositioned for comfort and administered tramadol per PINEDA cunningham, will reassess in an hour, call rg at reach.
--- NOTE | 2022-03-28 07:07 | NUR ---
Patient is resting quietly in bed, states pain is better, no s/s of distress noted, call rg at reach.
[2022-03-28 07:39] LABS: HEMATOCRIT 36.6 % (39.0-50.0); HEMOGLOBIN 11.7 g/dl (14.0-18.0); MEAN CELL VOLUME 86.9 fL CALC (80.0-100.0); MEAN CORPUSCULAR HGB 27.8 pG CALC (26.0-32.0); RED BLOOD COUNT 4.21 mill/uL (4.70-6.10); RED CELL DISTRI WIDTH 14.4 % (11.5-15.5)
--- NOTE | 2022-03-28 08:00 | NUR ---
PT RESTING IN FOWLERS POSITION. A/OX3 ASSESSMENT AND VS COMPLETED. HEART RHYTHM NORMAL. RESPIRATIONS EVEN AND UNLABORED. BOWEL SOUNDS ACTIVE. IV SITE NOTED. PT C/O PAIN DENIES MEDICATION. RIGHT LEF OPEN TO AIR NO DRESSINGS. ALL SAFETY PRECAUTIONS IN PLACE. WITH CALL LIGHT IN REACH.
[2022-03-28 08:16] LABS: ANION GAP 10 (6-22 (CALC)); BUN 32 mg/dL (8-23); BUN/CREATININE RATIO 29 (12-20 (CALC)); CARBON DIOXIDE 27 mmol/l (22-30); CHLORIDE 106 mmol/l (95-108); CREATININE 1.1 mg/dL (0.7-1.3); GFR FOR AFR.AMER. > 60 ML/MIN (>=60 (CALC)); GFR OTHER RACES > 60 ML/MIN (>=60 (CALC)); MAGNESIUM 1.7 mg/dL (1.6-2.3); SODIUM 140 mmol/l (137-146)
[2022-03-28 08:21] LABS: POTASSIUM 3.3 mmol/l (3.5-5.1)
--- NOTE | 2022-03-28 09:31 | NUR ---
S: CRISELDA ARIAS is a 72 M who presents with cellulitis. He has a history of arthritis, chicken pox/herpes, diabetes, hypertension, lung disease, stroke, thyroid problems, HD, CABG . All medications in patient's chart were reviewed. O: VS: BP:111/57mmHg, P:67bpm, RR:20bpm 20,T:98.1 F W: 111kg, HT: 190.5cm, Scr=1.3mg/dL, CrCl= 79.5ml/min Vanco trough = 16 mcg/ml 03/28 @ 0730 A: Blood culture show no growth. P: Patient is on Zosyn 3.375gm IV Q6H. Vancomycin ordered for pharmacy to dose. Decrease Vancomycin to 750mg IV Q12H. Vancomycin trough is drawn before the 4th dose on 03/29/2022 at 2130. Vancomycin goal trough is between 10-15 mcg/ml. Pharmacy will follow and or advise on antibiotics use as needed.
--- NOTE | 2022-03-28 12:10 | NUR ---
WOUND CARE MD AT THE BEDSIDE
--- NOTE | 2022-03-28 12:18 | NUR ---
PT RESTING IN FOWLERS POSITION. WOUND CONSULT AT BEDSIDE.
--- NOTE | 2022-03-28 15:37 | NUR ---
PT TRANSPORTED TO [facility] VIA STRECTHER ACCOMPANIED BY STAFF.
--- NOTE | 2022-03-28 16:15 | NUR ---
PT RESTING IN FOWLERS POSITION PT TRANSFERED BACK TO [facility] VIA STRECTHER. ACCOMAPNIED BY STAFF. DENIOES ADDITIONAL NEEDS .
--- NOTE | 2022-03-29 00:53 | NUR ---
PT IN BED ASLEEP, NO DISTRESS NOTED, BED IN LOW POSITION AND ALARM ON, CALL LIGHT WITHIN REACH
[2022-03-29 04:36] VITALS: BP 123/66
--- NOTE | 2022-03-29 05:04 | NUR ---
PT IN BED AWAKE, NO DISTRESS NOTED, WOUND CARE DONE, BED ALARM ON AND IN LOW POSITION, CALL LIGHT IN REACH
[2022-03-29 05:34] LABS: HEMATOCRIT 37.5 % (39.0-50.0); HEMOGLOBIN 12.1 g/dl (14.0-18.0); MEAN CELL VOLUME 85.8 fL CALC (80.0-100.0); MEAN CORPUSCULAR HGB 27.7 pG CALC (26.0-32.0); MEAN CORPUSCULAR HGB CONC 32.3 g/dL CAL (32.0-36.0); RED BLOOD COUNT 4.37 mill/uL (4.70-6.10); RED CELL DISTRI WIDTH 14.7 % (11.5-15.5)
[2022-03-29 05:57] LABS: BUN 29 mg/dL (8-23); BUN/CREATININE RATIO 24 (12-20 (CALC)); CARBON DIOXIDE 27 mmol/l (22-30); CHLORIDE 105 mmol/l (95-108); CREATININE 1.2 mg/dL (0.7-1.3); GFR FOR AFR.AMER. > 60 ML/MIN (>=60 (CALC)); GFR OTHER RACES 59 ML/MIN (>=60 (CALC)); MAGNESIUM 1.7 mg/dL (1.6-2.3); SODIUM 141 mmol/l (137-146)
[2022-03-29 05:59] LABS: ANION GAP 13 (6-22 (CALC))
[2022-03-29 06:47] VITALS: BP 121/57
--- NOTE | 2022-03-29 07:00 | NUR ---
REPORT RECIEVED FROM LEATHER STITCHERPACKER DENTURE
--- NOTE | 2022-03-29 08:56 | NUR ---
PT RESTING IN BED. STATES PAIN IN RIGHT LOWER LEG. PAIN OF 6/10. RIGHT HEEL DARK RED DISCOLARATION WITH SCABS/FLAKES. PT UNABLE TO MOVE RIGHT LEG, DRIGTS DOWN TO BED. BLEEDING ON POSTERIOR SIDE OF RIGHT LOWER LEG. BETADINE APPLIED TO WOUND. RIGHT LEG ELEVATED. PEDAL PULSE STRONG BILATERALLY. ASSESSMENT PERFORMED. BREATHING EVENA ND UNLABORED. ABLE TO TAKE PO MEDS. IV: 20 RAC FLUSHED. FALL/SAFTEY PRECAUTION IN PLACE. CALL LIGHT WITHIN REACH
--- NOTE | 2022-03-29 10:16 | NUR ---
PT VOICES PAIN IN RIGHT LEG OF 5/10 PAIN MEDICATION GIVEN SEE EMAR.RIGHT LEG ELEVATED. STATES NO OTHERT NEEDS AT THIS TIME. FALL/SAFTEY PRECAUTION IN PLACE. CALL LIGHT WITHINR EACH
--- NOTE | 2022-03-29 11:43 | NUR ---
Pt resting in bed, he c/o pain with movement of LEs and wih position changes. A/AROM to LLE 2x10 reps including heel slides, hip abd and SAQ. Bilateral heel cord stretching done and Act DF as able. Bilateral heel cord tightness present was able to get approx -5 to 0 degrees on L after stretch but not on R. Pt noted to be in wet bed and mod assist required to roll to R, mod/max towards L. He was unable to assist in scoot or moving up in bed. He refused sitting over edge of bed stating he was too weak to do it today. Pt left on R side with DEPILATORY PAINTER doing am care. BP 140/77, HR 77, 02sat 91%. Time with pt 40 min A- Pt requiring assist with all mobility and pain limiting LLE movement. [facility] 8 ECF. P- Will try and increase mobility as possible.
--- NOTE | 2022-03-29 12:08 | NUR ---
PT REFUSED INSULIN FOR COVERAGE OF BLOOD GLUCOSE METER OF 161. EDUCATED ON RISKS OF NOT TAKING INSULIN. EDUCATED ON DIABETES. PT STATES "ONLY COVERS FOR ABOVE 200." REEDUCATED ON DIABETES. PT STILL REFUSES MEDICATION.
--- NOTE | 2022-03-29 15:03 | NUR ---
betadine applied to right heel. pt tolerated well. right leg elevated. offloading heel. states no other needs at this time. fall/saftey precautuion in place. call light within reach
--- NOTE | 2022-03-29 15:10 | NUR ---
infectious disease consult md at bedside via [employer].
[2022-03-29 15:46] VITALS: BP 132/76
--- NOTE | 2022-03-29 18:29 | NUR ---
PT RESTING IN BED. IV 22G RFA FLUSHED. NO DISTRESS NOTED. FALL/SAFTEY PRECAUTION IN PLACE. CALL LIGHT WITHIN REACH
[2022-03-29 19:00] VITALS: BP 152/81
[2022-03-29 19:11] VITALS: BP 128/74
[2022-03-29 19:13] VITALS: BP 152/81
--- NOTE | 2022-03-30 04:10 | NUR ---
PT WAS A/O X3, NO ACUTE OVERNIGHT EVENTS, NO DISTRESS NOTED, BED ALARM ON AND IN LOW POSITION, CALL LIGHT IN REACH
[2022-03-30 05:26] VITALS: BP 129/77
[2022-03-30 05:32] VITALS: BP 129/77
[2022-03-30 07:12] VITALS: BP 132/71
--- NOTE | 2022-03-30 08:42 | NUR ---
JOHANNA RESULTS GIVEN TO Romaine DUTTA; TROUGH AT 20; MORNING DOSE TO BE HELD.
--- NOTE | 2022-03-30 08:44 | NUR ---
PT SITTING IN BED. A&O. NO DISTRESS NOTED. DENIES ANY PAIN AT THIS TIME. CLEAR/DIMINISHED BREATH SOUNDS UPON AUSCULTATION. ACTIVE BOWEL SOUNDS X4 QUADRANTS. +2 EDEMA TO BLE; RT LEG ELEVATED AND HEEL OFFLOADED. PT EDUCATED ON THE NEED TO PREFORM WOUND CARE; PT AGREEABLE TO PLAN. PT ENCOURAGED TO GET OOB AND INTO CHAIR. IVS HEALTHY AND PATENT. ASSESSMENT COMPLETED. DISCUSSED POC. CALL LIGHT WITHIN REACH.
--- NOTE | 2022-03-30 10:50 | NUR ---
WOUND CARE COMPLETED AT THIS TIME PER WOUND CARE CONSULT ORDERS. RLE ELEVATED ON PILLOWS. PT TOLERATED WELL. SMALL BM NOTED. COCYXX DRESSING REMOVED AND REPLACED. CALL LIGHT WITHIN REACH.
[2022-03-30 12:05] LABS: TSH, 3RD GENERATION 9.62 uIU/mL (0.47 - 4.68)
--- NOTE | 2022-03-30 16:05 | NUR ---
PT SLEEPING IN BED NO DISTRESS NOTED. CALL LIGHT WITHIN REACH.
[2022-03-30 16:38] VITALS: BP 135/63
[2022-03-30 19:03] VITALS: BP 112/63
--- NOTE | 2022-03-31 04:03 | NUR ---
PT IN BED ASLEEP, NO DISTRESS NOTED, NO OVERNIGHT EVENTS, PT WOUND CARE DONE, BED ALARM ON AND IN LOW POSITION, CALL LIGHT IN REACH
[2022-03-31 04:50] VITALS: BP 136/74
[2022-03-31 05:42] LABS: HEMATOCRIT 35.4 % (39.0-50.0); HEMOGLOBIN 11.3 g/dl (14.0-18.0); IMMATURE GRANULOCYTES 0.3 % (0.0-5.0); MEAN CELL VOLUME 86.8 fL CALC (80.0-100.0); MEAN CORPUSCULAR HGB 27.7 pG CALC (26.0-32.0); MEAN CORPUSCULAR HGB CONC 31.9 g/dL CAL (32.0-36.0); NEUT# 6.57 thou/uL (1.82-7.42); RED BLOOD COUNT 4.08 mill/uL (4.70-6.10); RED CELL DISTRI WIDTH 14.7 % (11.5-15.5)
[2022-03-31 05:46] LABS: CREATININE 1.5 mg/dL (0.7-1.3); POTASSIUM 3.4 mmol/l (3.5-5.1)
[2022-03-31 06:16] VITALS: BP 115/65
--- NOTE | 2022-03-31 08:27 | NUR ---
RESTING QUIETLY IN BED, NO SIGNS OR SYMPTOMS OF DISTRESS NOTED OR VOICED, DENIES PAIN, IV PATENT.
--- NOTE | 2022-03-31 12:09 | NUR ---
RESTING IN BED, NO COMPLAINTS, IV INFUSING ANTIBIOTIC.
[2022-03-31 14:08] VITALS: BP 119/63
--- NOTE | 2022-03-31 16:04 | NUR ---
RESTING QUIETLY IN BED, NO SIGNS OR SYMPTOMS OF DISTRESS NOTED OR VOICED.
--- NOTE | 2022-03-31 16:10 | NUR ---
Subjective: Patient states that R LE is aching today, but L LE is moving a little better. Objective findings: Patient did supine B LE AAROM exercises: hip and knee flexion and extension, hip adduction and abduction, and ankle pumps for 2 x 10 reps with 1 to 2 rest period due to muscle spasms on both calf muscles. Patient also did log rolling supine to sitting bed mobility with maximum assistance x 1 with multiple position adjustments due to discomfort on B LE, mostly R LE. Assessment: Patient struggling with transfer ADLs due to wounds on the R LE, muscle weakness, and inconsistency with practice of proper body mechanics. Plan: Patient to continue with AAROM exercises for B LE to help decrease settling in of B LE joint contractures and muscle atrophy. Am Pac score was 10 points, discharge recommendation will be prison rehab placement.
[2022-03-31 18:56] VITALS: BP 145/72
--- NOTE | 2022-03-31 21:58 | NUR ---
PT IN BED AWAKE DO DISTRESS NOTED, BED ALARM ON AND IN LOW POSITION, CALL LIGHT IN REACH
--- NOTE | 2022-04-01 04:25 | NUR ---
PT IN BED ASLEEP, NO OVERNIGHT EVENTS, BED IN LOW POSITION, CALL LIGHT IN REACH, WOUND CARE DONE
[2022-04-01 05:07] VITALS: BP 146/78
[2022-04-01 06:00] LABS: HEMATOCRIT 36.4 % (39.0-50.0); HEMOGLOBIN 11.8 g/dl (14.0-18.0); IMMATURE GRANULOCYTES 0.2 % (0.0-5.0); MEAN CELL VOLUME 86.1 fL CALC (80.0-100.0); MEAN CORPUSCULAR HGB 27.9 pG CALC (26.0-32.0); MEAN CORPUSCULAR HGB CONC 32.4 g/dL CAL (32.0-36.0); NEUT# 6.54 thou/uL (1.82-7.42); RED BLOOD COUNT 4.23 mill/uL (4.70-6.10); RED CELL DISTRI WIDTH 14.7 % (11.5-15.5)
[2022-04-01 06:11] LABS: ALKALINE PHOSPHATASE 75 u/l (38-126); ANION GAP 12 (6-22 (CALC)); BILIRUBIN, TOTAL 0.6 mg/dL (0.0-1.4); BUN 23 mg/dL (8-23); BUN/CREATININE RATIO 18 (12-20 (CALC)); CARBON DIOXIDE 28 mmol/l (22-30); CHLORIDE 105 mmol/l (95-108); CREATININE 1.2 mg/dL (0.7-1.3); GFR FOR AFR.AMER. > 60 ML/MIN (>=60 (CALC)); GFR OTHER RACES 59 ML/MIN (>=60 (CALC)); POTASSIUM 3.7 mmol/l (3.5-5.1); SGOT/AST 19 u/l (19-48); SODIUM 141 mmol/l (137-146)
[2022-04-01 06:14] LABS: ALBUMIN 3.2 g/dL (3.2-5.0); TOTAL PROTEIN 6.8 g/dL (6.3-8.2)
[2022-04-01 06:37] VITALS: BP 142/76
--- NOTE | 2022-04-01 07:30 | NUR ---
PT RESTING IN LOW FOWLERS POSITION. A/OX3 ASSESSMENT AND VS COMPLETED. HEART RHYTMNORMAL. RESPIRATIONS UNLABORED RA. BOWEL SOUNDS HYPOACTIVE. PT IV SITE NOTED. WOUND TO RLE NOTED ELEVATEED WOUND CARE TO BE PERFORMED. ALL SAFETY PRECAUTIONS IN PLACE WITHJ CALL LIGHT IN [facility].
[2022-04-01 08:00] VITALS: BP 142/76
--- NOTE | 2022-04-01 09:11 | NUR ---
BENADINE TO RLE /HEEL. APPLIED. RLE ELEVATED. OPEN TO AIR.
[2022-04-01] MEDS ORDERED: AMOX/K CLAV875 M1 PO (10:27)
[2022-04-01] MEDS ORDERED: JANUVIA50 MG PO (10:27)
[2022-04-01] MEDS ORDERED: VIBRAMYCIN100 M2 PO (10:27)
[2022-04-01] MEDS ORDERED: HUMALOG100 UNIT SC (10:27)
[2022-04-01] MEDS ORDERED: TRAMADOL HCL50 MG PO (10:32)
--- NOTE | 2022-04-01 12:00 | NUR ---
pt to be dc.
--- NOTE | 2022-04-01 12:30 | NUR ---
Pt resting in bed. He reports being D/C to rehab soon. 0- AROM ex performed to BLE in supine, pt able to move RLE today with A/AAROM. Exercised included heel slides, hip abd/add, SAQ and ankle dorsiflexion. Passive heel cord stretch performed bilaterally. Pt noted to be in dirty brief, rolling side to side with mod assist, talon area clean and new brief placed. Pt moved supine to sit with mod assist of LE, mod/max of upper body. Pt was able to maintain static sitting on edge of bed x 5 min. Standing not done today. Mod/max assist required to move supine and max assist x 2 to move up in bed. Pt was left in ruiz position with callbell/phone and tray in reach. BP 122/73, HR 83-84, 02sats 93% A- Pt with decreased mobility and has general weakness. Pt would benefit from ECF to return to [facility] (lives alone). [facility] 10 P- Will follow until D/Ricci.
--- NOTE | 2022-04-01 12:45 | NUR ---
BOTH IV REMOVED FOR DISCHCARGE OF PATIETN
--- NOTE | 2022-04-01 13:34 | NUR ---
Discharge instructions given. Patient verbalizes understanding of same. Discharged in stable condition via Stretcher to [facility] with staff. All belongings sent with pt.
== END 2022-04-01 13:33 | DRG 603 ==
LOC: ED 17:17 → ED-I 19:55 → ED 21:07 → MS2 21:08
PROVIDERS: Family Medicine; Internal Medicine; ADMIT Internal Medicine; ATTEND Internal Medicine
DX: L03.115 Cellulitis of right lower limb (principal); N17.9 Acute kidney failure, unspecified; L89.619 Pressure ulcer of right heel, unspecified stage; I11.0 Hypertensive heart disease with heart failure; I50.9 Heart failure, unspecified; E11.51 Type 2 diabetes mellitus with diabetic peripheral angiopathy without gangrene; I25.10 Atherosclerotic heart disease of native coronary artery without angina pectoris; E78.5 Hyperlipidemia, unspecified; E03.9 Hypothyroidism, unspecified; I48.0 Paroxysmal atrial fibrillation; K21.9 Gastro-esophageal reflux disease without esophagitis; R62.7 Adult failure to thrive; I25.2 Old myocardial infarction; B87.1 Wound myiasis; B96.89 Other specified bacterial agents as the cause of diseases classified elsewhere; Z68.30 Body mass index [BMI] 30.0-30.9, adult; Z79.4 Long term (current) use of insulin; Z95.5 Presence of coronary angioplasty implant and graft; Z98.62 Peripheral vascular angioplasty status; Z95.2 Presence of prosthetic heart valve; Z95.810 Presence of automatic (implantable) cardiac defibrillator; Z91.19 Patient's noncompliance with other medical treatment and regimen; Z86.73 Personal history of transient ischemic attack (TIA), and cerebral infarction without residual deficits; Z95.1 Presence of aortocoronary bypass graft; Z20.822 Contact with and (suspected) exposure to COVID-19
CPT/HCPCS: G0378; J1650; J3370; Q3014

== ENCOUNTER 2022-04-21 12:59 | Observation (INO) | payer MEDICARE, OTHER ==
[2022-04-21] VITALS (12 sets, daily range): BP systolic 127–143; BP diastolic 68–91
[~2022-04-21] VITALS: Ht 190.5 cm; Wt 114.0 kg
[~2022-04-21 12:59] MED LIST changes: +AMOX/K CLAV875 M1 PO; +HUMALOG100 UNIT SC; +TRAMADOL HCL50 MG PO; +VIBRAMYCIN100 M2 PO; +WELLBUTRIN XL150 MG PO
[2022-04-21 13:49] LABS: IMMATURE GRANULOCYTES 0.2 % (0.0-5.0); MEAN CELL VOLUME 89.9 fL CALC (80.0-100.0); MEAN CORPUSCULAR HGB 29.1 pG CALC (26.0-32.0); MEAN CORPUSCULAR HGB CONC 32.3 g/dL CAL (32.0-36.0); NEUT# 7.33 thou/uL (1.82-7.42); RED BLOOD COUNT 3.27 mill/uL (4.70-6.10); RED CELL DISTRI WIDTH 16.3 % (11.5-15.5)
[2022-04-21 13:57] LABS: ALKALINE PHOSPHATASE 106 u/l (38-126); BUN 19 mg/dL (8-23); BUN/CREATININE RATIO 13 (12-20 (CALC)); CARBON DIOXIDE 29 mmol/l (22-30); CHLORIDE 104 mmol/l (95-108); CREATININE 1.5 mg/dL (0.7-1.3); GFR FOR AFR.AMER. 56 ML/MIN (>=60 (CALC)); GFR OTHER RACES 46 ML/MIN (>=60 (CALC)); HEMATOCRIT 29.4 % (39.0-50.0); HEMOGLOBIN 9.5 g/dl (14.0-18.0); SODIUM 142 mmol/l (137-146)
[2022-04-21 13:59] LABS: ANION GAP 14 (6-22 (CALC)); BILIRUBIN, TOTAL 1.1 mg/dL (0.0-1.4); POTASSIUM 4.7 mmol/l (3.5-5.1); SGOT/AST 38 u/l (19-48); TOTAL PROTEIN 8.8 g/dL (6.3-8.2)
[2022-04-21 14:55] LABS: URINE BILIRUBIN - DIPSTICK NEGATIVE (NEGATIVE); URINE BLOOD DIPSTICK SMALL (NEGATIVE); URINE COLOR YELLOW; URINE GLUCOSE - DIPSTICK NEGATIVE (NEGATIVE); URINE KETONE NEGATIVE (NEGATIVE); URINE PROTEIN - DIPSTICK 30 mg/dL (NEG-TRACE); URINE SPECIFIC GRAVITY 1.025
[2022-04-21 15:17] LABS: URINE LEUK ESTERASE MODERATE (NEGATIVE); URINE NITRITE - DIPSTICK NEGATIVE (Negative)
[2022-04-21 15:23] LABS: URINE WBC 50-100 WBC/hpf (0-5)
[2022-04-22 00:40] VITALS: BP 143/77
[2022-04-22 04:51] LABS: HEMATOCRIT 34.1 % (39.0-50.0); HEMOGLOBIN 10.5 g/dl (14.0-18.0); IMMATURE GRANULOCYTES 0.2 % (0.0-5.0); MEAN CELL VOLUME 89.5 fL CALC (80.0-100.0); MEAN CORPUSCULAR HGB 27.6 pG CALC (26.0-32.0); MEAN CORPUSCULAR HGB CONC 30.8 g/dL CAL (32.0-36.0); NEUT# 6.28 thou/uL (1.82-7.42); RED BLOOD COUNT 3.81 mill/uL (4.70-6.10); RED CELL DISTRI WIDTH 16.3 % (11.5-15.5)
[2022-04-22 05:13] LABS: ALKALINE PHOSPHATASE 88 u/l (38-126); ANION GAP 8 (6-22 (CALC)); BUN 17 mg/dL (8-23); BUN/CREATININE RATIO 16 (12-20 (CALC)); CARBON DIOXIDE 29 mmol/l (22-30); CHLORIDE 107 mmol/l (95-108); CREATININE 1.1 mg/dL (0.7-1.3); GFR FOR AFR.AMER. > 60 ML/MIN (>=60 (CALC)); GFR OTHER RACES > 60 ML/MIN (>=60 (CALC)); POTASSIUM 3.9 mmol/l (3.5-5.1); SGOT/AST 14 u/l (19-48); SODIUM 140 mmol/l (137-146)
[2022-04-22 05:24] LABS: ALBUMIN 2.9 g/dL (3.2-5.0); BILIRUBIN, TOTAL 0.5 mg/dL (0.0-1.4); TOTAL PROTEIN 6.5 g/dL (6.3-8.2)
[2022-04-22 05:51] VITALS: BP 141/79
[2022-04-22 06:29] VITALS: BP 139/76
[2022-04-22 10:46] VITALS: BP 130/64
[2022-04-22 15:41] VITALS: BP 119/62
[2022-04-22 19:59] VITALS: BP 145/77
[2022-04-23] VITALS (8 sets, daily range): BP systolic 130–138; BP diastolic 69–79
[2022-04-23 04:58] LABS: HEMATOCRIT 35.5 % (39.0-50.0); HEMOGLOBIN 11.2 g/dl (14.0-18.0); IMMATURE GRANULOCYTES 0.2 % (0.0-5.0); MEAN CELL VOLUME 88.3 fL CALC (80.0-100.0); MEAN CORPUSCULAR HGB 27.9 pG CALC (26.0-32.0); MEAN CORPUSCULAR HGB CONC 31.5 g/dL CAL (32.0-36.0); NEUT# 5.58 thou/uL (1.82-7.42); RED BLOOD COUNT 4.02 mill/uL (4.70-6.10); RED CELL DISTRI WIDTH 16.2 % (11.5-15.5)
[2022-04-23 05:22] LABS: ALBUMIN 3.1 g/dL (3.2-5.0); ALKALINE PHOSPHATASE 96 u/l (38-126); ANION GAP 8 (6-22 (CALC)); BILIRUBIN, TOTAL 0.7 mg/dL (0.0-1.4); BUN 16 mg/dL (8-23); BUN/CREATININE RATIO 15 (12-20 (CALC)); CARBON DIOXIDE 32 mmol/l (22-30); CHLORIDE 105 mmol/l (95-108); CREATININE 1.1 mg/dL (0.7-1.3); GFR FOR AFR.AMER. > 60 ML/MIN (>=60 (CALC)); GFR OTHER RACES > 60 ML/MIN (>=60 (CALC)); MAGNESIUM 1.8 mg/dL (1.6-2.3); POTASSIUM 3.8 mmol/l (3.5-5.1); SGOT/AST 15 u/l (19-48); SODIUM 141 mmol/l (137-146); TOTAL PROTEIN 6.6 g/dL (6.3-8.2)
[2022-04-24] VITALS: BP 116/67
[2022-04-24 00:31] VITALS: BP 116/67
[2022-04-24 04:07] VITALS: BP 128/75
[2022-04-24 05:24] LABS: HEMATOCRIT 36.2 % (39.0-50.0); HEMOGLOBIN 11.5 g/dl (14.0-18.0); IMMATURE GRANULOCYTES 0.2 % (0.0-5.0); MEAN CELL VOLUME 87.7 fL CALC (80.0-100.0); MEAN CORPUSCULAR HGB 27.8 pG CALC (26.0-32.0); MEAN CORPUSCULAR HGB CONC 31.8 g/dL CAL (32.0-36.0); NEUT# 6.21 thou/uL (1.82-7.42); RED BLOOD COUNT 4.13 mill/uL (4.70-6.10); RED CELL DISTRI WIDTH 16.4 % (11.5-15.5)
[2022-04-24 05:51] LABS: ALBUMIN 3.3 g/dL (3.2-5.0); ALKALINE PHOSPHATASE 85 u/l (38-126); ANION GAP 12 (6-22 (CALC)); BILIRUBIN, TOTAL 0.8 mg/dL (0.0-1.4); BUN 22 mg/dL (8-23); BUN/CREATININE RATIO 19 (12-20 (CALC)); CARBON DIOXIDE 29 mmol/l (22-30); CHLORIDE 103 mmol/l (95-108); CREATININE 1.1 mg/dL (0.7-1.3); GFR FOR AFR.AMER. > 60 ML/MIN (>=60 (CALC)); GFR OTHER RACES > 60 ML/MIN (>=60 (CALC)); MAGNESIUM 1.8 mg/dL (1.6-2.3); POTASSIUM 4.3 mmol/l (3.5-5.1); SGOT/AST 20 u/l (19-48); SODIUM 140 mmol/l (137-146); TOTAL PROTEIN 7.1 g/dL (6.3-8.2)
[2022-04-24 06:17] VITALS: BP 127/66
[2022-04-24 08:21] VITALS: BP 127/66
[2022-04-24] MEDS ORDERED: NYSTATIN100000 UN2 TOP (10:53)
[2022-04-24] MEDS ORDERED: KEFLEX500 MG PO (10:55)
== END 2022-04-24 15:55 ==
LOC: ED 12:59 → ED-I 14:45 → ED 15:22 → MS2 15:23
PROVIDERS: Family Medicine; Nurse Practitioner; ADMIT Internal Medicine; ATTEND Internal Medicine
DX: R62.7 Adult failure to thrive (principal); R53.1 Weakness; E11.621 Type 2 diabetes mellitus with foot ulcer; L97.412 Non-pressure chronic ulcer of right heel and midfoot with fat layer exposed; L03.115 Cellulitis of right lower limb; I11.0 Hypertensive heart disease with heart failure; I50.9 Heart failure, unspecified; I25.10 Atherosclerotic heart disease of native coronary artery without angina pectoris; E03.9 Hypothyroidism, unspecified; K21.9 Gastro-esophageal reflux disease without esophagitis; B37.42 Candidal balanitis; S91.114A Laceration without foreign body of right lesser toe(s) without damage to nail, initial encounter; B96.4 Proteus (mirabilis) (morganii) as the cause of diseases classified elsewhere; B95.62 Methicillin resistant Staphylococcus aureus infection as the cause of diseases classified elsewhere; X58.XXXA Exposure to other specified factors, initial encounter; Z95.1 Presence of aortocoronary bypass graft; Z79.4 Long term (current) use of insulin; Z68.31 Body mass index [BMI] 31.0-31.9, adult; Z60.2 Problems related to living alone; Z86.73 Personal history of transient ischemic attack (TIA), and cerebral infarction without residual deficits; Z20.822 Contact with and (suspected) exposure to COVID-19
CPT/HCPCS: G0378; J1650

== ENCOUNTER 2022-09-27 09:53 | Observation (INO) | payer MEDICARE, OTHER ==
[2022-09-27] VITALS (9 sets, daily range): BP systolic 132–143; BP diastolic 78–96
[~2022-09-27] VITALS: Ht 274.3 cm; Wt 126.0 kg
[~2022-09-27 09:53] MED LIST changes: +KEFLEX500 MG PO; +NYSTATIN100000 UN2 TOP
[2022-09-27] MEDS ORDERED: CARVEDILOL3.125 MG PO (10:31)
[2022-09-27] MEDS ORDERED: LOTENSIN5 MG PO (10:31)
[2022-09-27] MEDS ORDERED: BUMETANIDE1 MG PO (10:33)
[2022-09-27 10:38] LABS: URINE BILIRUBIN - DIPSTICK NEGATIVE (NEGATIVE); URINE BLOOD DIPSTICK SMALL (NEGATIVE); URINE COLOR YELLOW; URINE GLUCOSE - DIPSTICK 100 mg/dL (NEGATIVE); URINE KETONE NEGATIVE (NEGATIVE); URINE PH 5.5 (4.5-8.0); URINE PROTEIN - DIPSTICK 30 mg/dL (NEG-TRACE); URINE SPECIFIC GRAVITY 1.025; URINE UROBILINOGEN - DIPSTICK 0.2 E.U./dL (0.2)
[2022-09-27 10:42] LABS: BASO% 0.8 % (0-3); EOS% 2.6 % (0-8); HEMATOCRIT 38.5 % (39.0-50.0); HEMOGLOBIN 12.2 g/dl (14.0-18.0); IMMATURE GRANULOCYTES 0.2 % (0.0-5.0); LYMPH% 8.1 % (15-41); MEAN CELL VOLUME 88.9 fL CALC (80.0-100.0); MEAN CORPUSCULAR HGB 28.2 pG CALC (26.0-32.0); MEAN CORPUSCULAR HGB CONC 31.7 g/dL CAL (32.0-36.0); MONO% 5.9 % (2-13); NEUT# 7.98 thou/uL (1.82-7.42); NEUT% 82.4 % (42-76); RED BLOOD COUNT 4.33 mill/uL (4.70-6.10); RED CELL DISTRI WIDTH 14.7 % (11.5-15.5)
[2022-09-27 10:44] LABS: URINE LEUK ESTERASE SMALL (NEGATIVE); URINE NITRITE - DIPSTICK NEGATIVE (Negative)
[2022-09-27 10:51] LABS: URINE SQUAMOUS EPITHELIAL CELL FEW EPI/hpf (0-FEW); URINE WBC 50-100 WBC/hpf (0-5)
[2022-09-27 10:53] LABS: URINE BACTERIA RARE hpf; URINE HYALINE CAST FEW lpf (NONE-RARE)
[2022-09-27 10:55] LABS: URINE COARSE GRANULAR CAST FEW lpf
[2022-09-27 11:09] LABS: ALBUMIN 4.2 g/dL (3.2-5.0); ALKALINE PHOSPHATASE 97 u/l (38-126); ANION GAP 12 (6-22 (CALC)); BILIRUBIN, TOTAL 0.6 mg/dL (0.0-1.4); BUN 32 mg/dL (8-23); BUN/CREATININE RATIO 26 (12-20 (CALC)); CARBON DIOXIDE 25 mmol/l (22-30); CHLORIDE 105 mmol/l (95-108); CREATININE 1.2 mg/dL (0.7-1.3); GFR FOR AFR.AMER. > 60 ML/MIN (>=60 (CALC)); GFR OTHER RACES 59 ML/MIN (>=60 (CALC)); POTASSIUM 3.9 mmol/l (3.5-5.1); SGOT/AST 28 u/l (19-48); SODIUM 139 mmol/l (137-146); TOTAL PROTEIN 8.2 g/dL (6.3-8.2)
[2022-09-27] MEDS ORDERED: COZAAR50 MG PO (14:03)
[2022-09-27] MEDS ORDERED: LEVOTHYROXIN50 MCG PO (14:15)
[2022-09-28] VITALS: BP 129/83
[2022-09-28 05:21] VITALS: BP 125/65
[2022-09-28 06:06] LABS: HEMATOCRIT 34.6 % (39.0-50.0); HEMOGLOBIN 11.1 g/dl (14.0-18.0); MEAN CELL VOLUME 88.7 fL CALC (80.0-100.0); MEAN CORPUSCULAR HGB 28.5 pG CALC (26.0-32.0); MEAN CORPUSCULAR HGB CONC 32.1 g/dL CAL (32.0-36.0); RED BLOOD COUNT 3.9 mill/uL (4.70-6.10); RED CELL DISTRI WIDTH 14.6 % (11.5-15.5)
[2022-09-28 06:08] LABS: ANION GAP 11 (6-22 (CALC)); BUN 28 mg/dL (8-23); BUN/CREATININE RATIO 24 (12-20 (CALC)); CARBON DIOXIDE 27 mmol/l (22-30); CHLORIDE 106 mmol/l (95-108); CREATININE 1.2 mg/dL (0.7-1.3); GFR FOR AFR.AMER. > 60 ML/MIN (>=60 (CALC)); GFR OTHER RACES 59 ML/MIN (>=60 (CALC)); MAGNESIUM 1.8 mg/dL (1.6-2.3); POTASSIUM 3.5 mmol/l (3.5-5.1); SODIUM 141 mmol/l (137-146)
[2022-09-28 07:57] VITALS: BP 141/82
[2022-09-28 10:57] VITALS: BP 136/69
[2022-09-28 15:21] VITALS: BP 144/82
[2022-09-28 19:31] VITALS: BP 144/81
[2022-09-29 00:25] VITALS: BP 130/71
[2022-09-29 05:29] VITALS: BP 120/73
[2022-09-29 05:50] LABS: BASO% 0.6 % (0-3); EOS% 2.9 % (0-8); HEMOGLOBIN 11.1 g/dl (14.0-18.0); IMMATURE GRANULOCYTES 0.3 % (0.0-5.0); LYMPH% 9.4 % (15-41); MEAN CELL VOLUME 89.1 fL CALC (80.0-100.0); MEAN CORPUSCULAR HGB 28.2 pG CALC (26.0-32.0); MEAN CORPUSCULAR HGB CONC 31.7 g/dL CAL (32.0-36.0); MONO% 8.8 % (2-13); NEUT# 7.48 thou/uL (1.82-7.42); RED BLOOD COUNT 3.93 mill/uL (4.70-6.10); RED CELL DISTRI WIDTH 14.7 % (11.5-15.5)
[2022-09-29 06:02] LABS: ALBUMIN 3.5 g/dL (3.2-5.0); ALKALINE PHOSPHATASE 82 u/l (38-126); ANION GAP 8 (6-22 (CALC)); BILIRUBIN, TOTAL 0.4 mg/dL (0.0-1.4); BUN 31 mg/dL (8-23); BUN/CREATININE RATIO 24 (12-20 (CALC)); CARBON DIOXIDE 28 mmol/l (22-30); CHLORIDE 105 mmol/l (95-108); CREATININE 1.3 mg/dL (0.7-1.3); GFR FOR AFR.AMER. > 60 ML/MIN (>=60 (CALC)); GFR OTHER RACES 54 ML/MIN (>=60 (CALC)); POTASSIUM 3.5 mmol/l (3.5-5.1); SGOT/AST 23 u/l (19-48); SODIUM 138 mmol/l (137-146); TOTAL PROTEIN 7.3 g/dL (6.3-8.2)
[2022-09-29 06:32] LABS: TSH, 3RD GENERATION 6.16 uIU/mL (0.47 - 4.68)
[2022-09-29 07:22] VITALS: BP 122/76
[2022-09-29 12:20] VITALS: BP 145/84
[2022-09-29 15:46] VITALS: BP 133/59
[2022-09-29 19:17] VITALS: BP 134/71
[2022-09-30] VITALS (8 sets, daily range): BP systolic 120–164; BP diastolic 59–85
[2022-09-30 05:46] LABS: HEMATOCRIT 34.8 % (39.0-50.0); MEAN CELL VOLUME 89.2 fL CALC (80.0-100.0); MEAN CORPUSCULAR HGB 28.2 pG CALC (26.0-32.0); MEAN CORPUSCULAR HGB CONC 31.6 g/dL CAL (32.0-36.0); RED BLOOD COUNT 3.9 mill/uL (4.70-6.10); RED CELL DISTRI WIDTH 14.6 % (11.5-15.5)
[2022-09-30 06:01] LABS: ALBUMIN 3.3 g/dL (3.2-5.0); ALKALINE PHOSPHATASE 86 u/l (38-126); BILIRUBIN, TOTAL 0.4 mg/dL (0.0-1.4); BUN 29 mg/dL (8-23); BUN/CREATININE RATIO 25 (12-20 (CALC)); CARBON DIOXIDE 27 mmol/l (22-30); CHLORIDE 105 mmol/l (95-108); CREATININE 1.2 mg/dL (0.7-1.3); GFR FOR AFR.AMER. > 60 ML/MIN (>=60 (CALC)); GFR OTHER RACES 59 ML/MIN (>=60 (CALC)); MAGNESIUM 1.9 mg/dL (1.6-2.3); POTASSIUM 3.5 mmol/l (3.5-5.1); SGOT/AST 15 u/l (19-48); TOTAL PROTEIN 6.7 g/dL (6.3-8.2)
[2022-09-30 06:11] LABS: ANION GAP 9 (6-22 (CALC)); SODIUM 137 mmol/l (137-146)
[2022-10-01 00:31] VITALS: BP 130/78
[2022-10-01 04:11] VITALS: BP 117/71
[2022-10-01 07:13] VITALS: BP 117/67
[2022-10-01] MEDS ORDERED: AMOX/K CLAV875 M1 PO (15:06)
[2022-10-01] MEDS ORDERED: VIBRAMYCIN100 M2 PO (15:06)
[2022-10-01] MEDS ORDERED: JANUVIA50 MG PO (15:07)
[2022-10-01 15:57] VITALS: BP 131/75
[2022-10-01 19:16] VITALS: BP 117/67
== END 2022-10-01 20:40 ==
LOC: ED 09:53 → ED-I 11:40 → ED 11:58 → MS2 11:59
PROVIDERS: Family Medicine; Internal Medicine; ADMIT Internal Medicine; ATTEND Internal Medicine
DX: I11.0 Hypertensive heart disease with heart failure (principal); I50.23 Acute on chronic systolic (congestive) heart failure; E11.621 Type 2 diabetes mellitus with foot ulcer; L97.419 Non-pressure chronic ulcer of right heel and midfoot with unspecified severity; E11.51 Type 2 diabetes mellitus with diabetic peripheral angiopathy without gangrene; I70.238 Atherosclerosis of native arteries of right leg with ulceration of other part of lower leg; L97.819 Non-pressure chronic ulcer of other part of right lower leg with unspecified severity; I70.248 Atherosclerosis of native arteries of left leg with ulceration of other part of lower leg; L97.829 Non-pressure chronic ulcer of other part of left lower leg with unspecified severity; L03.115 Cellulitis of right lower limb; I25.10 Atherosclerotic heart disease of native coronary artery without angina pectoris; E78.5 Hyperlipidemia, unspecified; E03.9 Hypothyroidism, unspecified; K21.9 Gastro-esophageal reflux disease without esophagitis; Z60.2 Problems related to living alone; Z86.73 Personal history of transient ischemic attack (TIA), and cerebral infarction without residual deficits; Z95.1 Presence of aortocoronary bypass graft; Z20.822 Contact with and (suspected) exposure to COVID-19
CPT/HCPCS: J1650; J3370